=== PATIENT | male | born 1980 | race Two or more races ===

== ENCOUNTER 2017-09-16 10:09 | Inpatient (IN) | payer OTHER ==
[2017-09-16 11:32] VITALS: BMI 38.2
--- NOTE | 2017-09-16 13:50 | HP ---
Admission [facility] Chief Complaint: REHAB TX FOR DRUG ADDICTION Allergies/Adverse Reactions: Allergies Allergy/AdvReac Type Severity Reaction Status Date / Time No Known Allergies Allergy Verified 09/16/17 12:31 History of Present Illness: 37 Y/O AA/MALE WITH A HX OF PCP, ECSTASY AND MARIJUANA DEPENDENCE SEEKING REHAB TX. PT REPORTS HE WAS REFERRED HERE FROM [facility]. PT HAS PRIMARY AT [address] [place] [address] KELLY[address] Exam Limitations: No Limitations - Ebola screening Have you traveled outside of the country in the last 21 days: No (N) Have you had contact with anyone from an Ebola affected area: No Have you been sick,other than usual withdrawal symptoms: No Do you have a fever: No - Review of Systems Constitutional: Changes in sleep EENT: reports: Blurred Vision, Dental Problems (TOOTHACHE HX) Respiratory: reports: Shortness of Breath (HX ASTHMA-MDI), Wheezing Cardiac: reports: Lightheadedness GI: reports: Constipated, Diarrhea, Abdominal cramping, Other (COLONOSCOPY 2 MONTHS AGO--BENIGN POLYPS REMOVED.) : reports: Dysuria Musculoskeletal: reports: Back Pain, Joint Pain, Joint Swelling (S/P LEFT ANKLE FRACTURE 5 YRS AGO.), Muscle Pain, Other (FEET PAIN AND HX NEUROPATHY.) Integumentary: reports: Change in Hair/Nails, Dryness (FEET) Neuro: reports: Headache, Numbness, Tingling, Tremors, Unsteady Gait, Dizziness Endocrine: reports: No Symptoms Reported Hematology: reports: No Symptoms Reported Psychiatric: reports: Orientated x3, Anxious, Depressed Other Systems: Reviewed and Negative Patient History - Patient Medical History Hx Anemia: No Hx Asthma: Yes Hx Chronic Obstructive Pulmonary Disease (COPD): No Hx Cardiac Disorders: No Hx Hypertension: No Hx Hypercholesterolemia: No HX Cerebrovascular Accident: No Hx Seizures: No Hx Diabetes: Yes Hx Gastrointestinal Disorders: Yes (NO MED) Hx Liver Disease: No Hx Genitourinary Disorders: No Hx Sexually Transmitted Disorders: No Hx Renal Disease (ESRD): No Hx Thyroid Disease: No Hx Human Immunodeficiency Virus (HIV): No (NEGATIVE HX) Hx Hepatitis C: No Hx Depression: Yes (NO CURRENT MEDS X 1 WEEK) Hx Suicide Attempt: No (DENIES) Hx Bipolar Disorder: Yes (PTSD) Hx Schizophrenia: Yes - Patient Surgical History Past Surgical History: No Hx Neurologic Surgery: No Hx Cataract Extraction: No Hx Cardiac Surgery: No Hx Lung Surgery: No Hx Breast Surgery: No Hx Breast Biopsy: No Hx Abdominal Surgery: No Hx Appendectomy: No Hx Cholecystectomy: No Hx Genitourinary Surgery: No Hx Orthopedic Surgery: No Anesthesia Reaction: No - PPD History Previous Implant?: Yes Documented Results: Negative w/o proof Implanted On Prior [facility] Admission?: No PPD to be Administered?: Yes - Reproductive History Patient is a Female of Child Bearing Age (11 -55 yrs old): No (MALE) - Smoking Cessation Smoking history: Current every day smoker Aproximately how many cigarettes per day: 6 Hx Chewing Tobacco Use: No Initiated information on smoking cessation: Yes 'Breaking Loose' booklet given: 09/16/17 - Substance & Tx. History Hx Alcohol Use: Yes (BEER/LIQUOR) Hx Substance Use: Yes (ECSTACY/MARIJUANA) Substance Use Type: Marijuana - Substances Abused Ectasy Route: Smoking Frequency: Daily Amount used: $20-40 Age of first use: 11 Date of Last Use: 09/16/17 Marijuana/Hashish Route: Smoking Frequency: Daily Amount used: 5-10 bags Age of first use: 11 Date of Last Use: 09/16/17 Alcohol Route: Oral Frequency: 1-3 times last 30 days Amount used: 2 CANS/ 2 SHOTS Age of first use: 11 Date of Last Use: 09/15/17 Family Disease History - Family Disease History Family Disease History: Diabetes: Grandparent (), Other: Mother (HTN) Admission Physical Exam [facility] - Vital Signs Vital Signs: Vital Signs - 24 hr 09/16/17 11:29 Temperature 97.5 F L Pulse Rate 81 Respiratory 20 Rate Blood Pressure 131/90 - Physical General Appearance: Yes: No Apparent Distress, Obese HEENTM: Yes: EOMI, Normocephalic, [place], Pharynx Normal Respiratory: Yes: Chest Non-Tender, Lungs Clear, Normal Breath Sounds, No Respiratory Distress Neck: Yes: No masses,lesions,Nodules, Supple, Trachea in good position Breast: Yes: Breast Exam Deferred Cardiology: Yes: Regular Rhythm, Regular Rate, S1, S2 Abdominal: Yes: Normal Bowel Sounds, Non Tender, Protuberent Genitourinary: Yes: Other (N/C) Back: Yes: Within Normal Limits Musculoskeletal: Yes: full range of Motion, Gait Steady Extremities: Yes: Normal Range of Motion, Non-Tender Neurological: Yes: supervisor carbon electrodes II-XII NML intact, Fully Oriented, Alert, Motor Strength 5/5 Integumentary: Yes: Dry, Warm Lymphatic: Yes: Within Normal Limits - Diagnostic (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 (2) PCP dependence Current Visit: Yes Status: Chronic (3) Asthma Current Visit: Yes Status: Acute Qualifiers: Asthma severity: mild Asthma persistence: unspecified Asthma complication type: uncomplicated Qualified Code(s): J45.909 - Unspecified asthma, uncomplicated (4) Diabetes mellitus Current Visit: Yes Status: Chronic Comment: ON METFORMIN 1000 PO BID (5) Neuropathy, peripheral Current Visit: Yes Status: Chronic Qualifiers: Peripheral neuropathy type: polyneuropathy, unspecified Qualified Code(s): G62.9 - Polyneuropathy, unspecified Cleared for Admission [facility] - Detox or Rehab Claeared for Rehab Admission: Yes [facility] Breath Alcohol Content Breath Alcohol Content: 0 Urine Drug Screen - Results Drug Screen Negative: No Urine Drug Screen Results: PCP-Phencyclidine Inpatient Rehab Admission - Initial Determination Are CD services needed?: Yes Free of communicable disease: Yes Not in need of hospitalization: Yes - Rehab Admission Criteria Patient is meeting Inpatient Rehab admission criteria:: Yes
[2017-09-16] MEDS ORDERED: NICOTINE POLACRILEX 2 MG GUM BUC PRN (14:10)
[2017-09-16] MEDS ORDERED: MAGNESIUM CITRATE 300 ML BOTTLE PO PRN (14:10)
[2017-09-16] MEDS ORDERED: guaiFENesin/D-METHORPHAN HB 10 ML UNIT-DOSE CUPS PO PRN (14:10)
[2017-09-16] MEDS ORDERED: IBUPROFEN 400 MG TABLET (FP) PO PRN (14:10)
[2017-09-16] MEDS ORDERED: LOPERAMIDE HCL 2 MG CAPSULE PO PRN (14:10)
[2017-09-16] MEDS ORDERED: MENTHOL/PHENOL 1 EACH UD MM PRN (14:10)
[2017-09-16] MEDS ORDERED: MAG HYDROX/AL HYDROX/SIMETH 30 ML UNIT-DOSE CUP PO PRN (14:10)
[2017-09-16] MEDS ORDERED: ACETAMINOPHEN 325 MG TABLET (FP) PO PRN (14:10)
[2017-09-16] MEDS ORDERED: P-EPHED 60MG/TRIPROLIDI 2.5MG TABLET PO PRN (14:10)
[2017-09-16] MEDS ORDERED: MAGNESIUM HYDROX 2400MG/30ML ORAL SUSPENSION 30 ML CUP PO PRN (14:10)
[2017-09-16] MEDS ORDERED: ALBUTEROL SO4 18 GM HFA INHALER IH PRN (14:11)
[2017-09-16] MEDS ORDERED: TUBERCULIN PPD 5 TU/0.1ML VIAL ID ONE (14:27)
[2017-09-16] MEDS: NICOTINE 14 MG/24 HOURS TOPICAL PATCH TD SCH (15:31)
[2017-09-16 16:25] LABS: MCH 29.2 pg (25.7-33.7); MEAN CELL VOLUME 85.9 fl (80-96); MEAN PLT VOLUME 8.4 fl (7.5-11.1); PLATELET COUNT 188 K/MM3 (134-434); RDW 13.4 % (11.9-15.9); WHITE BLOOD COUNT 6.4 K/mm3 (4.0-10.0)
[2017-09-16] MEDS ORDERED: metFORMIN HCL 500 MG TABLET (FP) PO SCH (16:30)
[2017-09-16 16:38] LABS: ALBUMIN 4.1 g/dl (3.4-5.0); ANION GAP 8 (8-16); CALCIUM 9.5 mg/dL (8.5-10.1); CO2 30 mmol/L (21-32); GLUCOSE,RANDOM 385 mg/dL (74-106); SGOT/AST 15 U/L (15-37); SGPT/ALT 31 U/L (12-78)
[2017-09-16 16:41] LABS: ALK PHOS 112 U/L (45-117); BILIRUBIN,TOTAL 0.5 mg/dL (0.2-1.0); CREATININE 0.9 mg/dL (0.7-1.3); TOT PROT 7.5 g/dl (6.4-8.2)
[2017-09-16] MEDS: metFORMIN HCL 500 MG TABLET (FP) PO SCH (18:02)
[2017-09-16 20:14] LABS: SICKLE CELL SCREEN NEGATIVE (NEGATIVE)
[2017-09-16] MEDS: THIAMINE HCL 100 MG TABLET (FP) PO SCH (21:35)
[2017-09-16] MEDS: hydrOXYzine PAMOATE 50 MG CAPSULE (FP) PO PRN (21:35)
[2017-09-16] MEDS: INSULIN SLIDING SCALE (NOVOLOG) 1 VIAL SQ SCH (21:38)
[2017-09-16] MEDS ORDERED: INSULIN (NOVOLOG) ASPART 100 UNITS/ML 10ML VIAL ONE (21:41)
[2017-09-17 03:45] LABS: URINE APPEARANCE CLEAR; URINE BILIRUBIN NEGATIVE (NEGATIVE); URINE BLOOD NEGATIVE (NEGATIVE); URINE COLOR YELLOW; URINE GLUCOSE (UA) 3+ (NEGATIVE); URINE KETONE NEGATIVE (NEGATIVE); URINE NITRITE NEGATIVE (NEGATIVE); URINE PROTEIN NEGATIVE (NEGATIVE); URINE UROBILINOGEN 4.0 E.U/dl mg/dL (0.2-1.0)
[2017-09-17] MEDS: metFORMIN HCL 500 MG TABLET (FP) PO SCH ×2 (07:11→17:03)
[2017-09-17] MEDS: INSULIN SLIDING SCALE (NOVOLOG) 1 VIAL SQ SCH ×4 (07:11→21:58)
[2017-09-17] MEDS ORDERED: INSULIN (NOVOLOG) ASPART 100 UNITS/ML 10ML VIAL ONE ×3 (08:41→22:37)
[2017-09-17] MEDS: PRENATAL VITAMINS W/ FOLIC ACID TABLET (FP) PO SCH (09:50)
[2017-09-17] MEDS: NICOTINE 14 MG/24 HOURS TOPICAL PATCH TD SCH (09:50)
--- NOTE | 2017-09-17 10:02 | HP ---
Psychiatrist Admission - Data Date of interview: 09/17/17 Admission source: [facility] Identifying data: This is the first admission to [address] [place] [address] for this 37 years old AA single father of 3 ,resides with his mother,unemployed. Medical History: Significant for DM,HTN. Psychiatric History: First contact with psychiatrist was in childhood due to behavioral issues.He was dx with ADHD.PATIENT was on Ritalin.Then he was placed on Zoloft and Remeron,Seroquel since his s at [facility].He was addressed depression,anxiety.Patient was dx with PTSD (he was [place]Patient was obtaining psychotropic medications from his PCP.Zoloft 200 mg po daily,Remeron 45 mg po hs and Seroquel 200 mg po hs. Physical/Sexual Abuse/Trauma History: see psychiatric history. Vital Signs: Vital Signs - 24 hr 09/16/17 09/17/17 09/17/17 11:29 03:30 06:52 Temperature 97.5 F L 97.3 F L Pulse Rate 81 73 Respiratory 20 18 18 Rate Blood Pressure 131/90 132/89 Allergies/Adverse Reactions: Allergies Allergy/AdvReac Type Severity Reaction Status Date / Time No Known Allergies Allergy Verified 11/23/12 14:07 Date of last physical exam: 10/16/17 Concur with the findings of this exam: Yes - Substance Abuse/Tx History Hx Alcohol Use: Yes (drinking since 11 yo,2 cans and 2 shots of vodka daily) Hx Substance Use: Yes (marijuana since 11 yo,ecstasysince 11 yo,20-39) Substance Use Type: Alcohol, Marijuana Hx Substance Use Treatment: Yes Mental Status Exam - Mental Status Exam Alert and Oriented to: Time, Place, Person Cognitive Function: Grossly Intact Patient Appearance: Well Groomed Mood: Euthymic Affect: Mood Congruent Patient Behavior: Cooperative Speech Pattern: Clear Voice Loudness: Normal Thought Process: Goal Oriented Thought Disorder: Not Present Hallucinations: Denies Suicidal Ideation: Denies Homicidal Ideation: Denies Insight/Judgement: Fair Sleep: Fair Appetite: Good Muscle strength/Tone: Normal Gait/Station: Normal Psychiatric Findings - Problem List ([place] 1, 2,3) (1) PCP dependence Current Visit: Yes Status: Chronic (2) Asthma Current Visit: Yes Status: Chronic Qualifiers: Asthma severity: mild Asthma persistence: unspecified Asthma complication type: uncomplicated Qualified Code(s): J45.909 - Unspecified asthma, uncomplicated (3) Diabetes mellitus Current Visit: Yes Status: Chronic Comment: ON METFORMIN 1000 PO BID (4) Neuropathy, peripheral Current Visit: Yes Status: Chronic Qualifiers: Peripheral neuropathy type: polyneuropathy, unspecified Qualified Code(s): G62.9 - Polyneuropathy, unspecified (5) PTSD (post-traumatic stress disorder) Current Visit: Yes Status: Chronic (6) Bipolar II disorder Current Visit: Yes Status: Chronic - Initial Treatment Plan Initial Treatment Plan: Continue medications as per plan.Will monitor progress.
--- NOTE | 2017-09-17 10:14 | EKG ---
Test Reason : Blood Pressure : / mmHG Vent. Rate : 082 BPM Atrial Rate : 082 BPM P-R Int : 180 ms QRS Dur : 086 ms QT Int : 372 ms P-R-T Axes : 073 080 030 degrees QTc Int : 434 ms NORMAL SINUS RHYTHM NONSPECIFIC ST AND T WAVE ABNORMALITY ABNORMAL ECG NO PREVIOUS ECGS AVAILABLE Confirmed by ULYSSES LOPEZ MD ([id number]) on 09/17/2017 10:14:52 AM Referred By: JESSIE OSULLIVAN Confirmed By:ULYSESS LOPEZ MD
[2017-09-17 11:23] LABS: URINE LEUK ESTERASE Negative (NEGATIVE)
[2017-09-17] MEDS: SERTRALINE HCL 50 MG TABLET (FP) PO SCH (12:35)
[2017-09-17] MEDS ORDERED: IBUPROFEN 600 MG TABLET (FP) PO PRN (14:52)
[2017-09-17 15:44] LABS: HIV 1 & 2 AB NEGATIVE; HIV 1 AGp24 NEGATIVE
[2017-09-17] MEDS: TOLNAFTATE 1% CREAM 15 GM TUBE TP SCH ×2 (17:10→21:59)
[2017-09-17] MEDS: LISINOPRIL 5 MG TABLET (FP) PO SCH (17:12)
[2017-09-17] MEDS: THIAMINE HCL 100 MG TABLET (FP) PO SCH (21:58)
[2017-09-17] MEDS: hydrOXYzine PAMOATE 50 MG CAPSULE (FP) PO PRN (21:58)
[2017-09-17] MEDS: MIRTAZAPINE 15 MG TABLET (FP) PO SCH (21:58)
[2017-09-17] MEDS: QUEtiapine FUMARATE 200 MG TABLET PO SCH (21:58)
[2017-09-18] MEDS: metFORMIN HCL 500 MG TABLET (FP) PO SCH ×2 (06:39→16:26)
[2017-09-18] MEDS: INSULIN SLIDING SCALE (NOVOLOG) 1 VIAL SQ SCH ×4 (06:41→21:00)
[2017-09-18] MEDS ORDERED: INSULIN (NOVOLOG) ASPART 100 UNITS/ML 10ML VIAL ONE ×4 (06:42→21:02)
[2017-09-18] MEDS: PRENATAL VITAMINS W/ FOLIC ACID TABLET (FP) PO SCH (09:37)
[2017-09-18] MEDS: NICOTINE 14 MG/24 HOURS TOPICAL PATCH TD SCH (09:37)
[2017-09-18] MEDS: LISINOPRIL 5 MG TABLET (FP) PO SCH (09:37)
[2017-09-18] MEDS: SERTRALINE HCL 50 MG TABLET (FP) PO SCH (09:37)
[2017-09-18] MEDS: TOLNAFTATE 1% CREAM 15 GM TUBE TP SCH ×2 (09:37→23:38)
[2017-09-18] MEDS: QUEtiapine FUMARATE 200 MG TABLET PO SCH (21:14)
[2017-09-18] MEDS: THIAMINE HCL 100 MG TABLET (FP) PO SCH (21:14)
[2017-09-18] MEDS: MIRTAZAPINE 15 MG TABLET (FP) PO SCH (21:14)
[2017-09-19] MEDS: metFORMIN HCL 500 MG TABLET (FP) PO SCH ×2 (07:15→16:36)
[2017-09-19] MEDS ORDERED: INSULIN (NOVOLOG) ASPART 100 UNITS/ML 10ML VIAL ONE ×4 (07:17→21:46)
[2017-09-19] MEDS: INSULIN SLIDING SCALE (NOVOLOG) 1 VIAL SQ SCH ×4 (07:19→21:46)
[2017-09-19] MEDS: NICOTINE 14 MG/24 HOURS TOPICAL PATCH TD SCH (09:53)
[2017-09-19] MEDS: SERTRALINE HCL 50 MG TABLET (FP) PO SCH (09:53)
[2017-09-19] MEDS: PRENATAL VITAMINS W/ FOLIC ACID TABLET (FP) PO SCH (09:53)
[2017-09-19] MEDS: TOLNAFTATE 1% CREAM 15 GM TUBE TP SCH ×2 (09:53→21:40)
[2017-09-19] MEDS: LISINOPRIL 5 MG TABLET (FP) PO SCH (09:53)
[2017-09-19] MEDS: THIAMINE HCL 100 MG TABLET (FP) PO SCH (21:40)
[2017-09-19] MEDS: MIRTAZAPINE 15 MG TABLET (FP) PO SCH (21:40)
[2017-09-19] MEDS: QUEtiapine FUMARATE 200 MG TABLET PO SCH (21:40)
[2017-09-20] MEDS: INSULIN SLIDING SCALE (NOVOLOG) 1 VIAL SQ SCH ×4 (07:07→21:39)
[2017-09-20] MEDS: metFORMIN HCL 500 MG TABLET (FP) PO SCH ×2 (07:07→17:14)
[2017-09-20] MEDS ORDERED: INSULIN (NOVOLOG) ASPART 100 UNITS/ML 10ML VIAL ONE ×2 (07:32→12:03)
[2017-09-20] MEDS: NICOTINE 14 MG/24 HOURS TOPICAL PATCH TD SCH (09:50)
[2017-09-20] MEDS: LISINOPRIL 5 MG TABLET (FP) PO SCH (09:50)
[2017-09-20] MEDS: PRENATAL VITAMINS W/ FOLIC ACID TABLET (FP) PO SCH (09:50)
[2017-09-20] MEDS: SERTRALINE HCL 50 MG TABLET (FP) PO SCH (09:51)
[2017-09-20] MEDS: TOLNAFTATE 1% CREAM 15 GM TUBE TP SCH ×2 (09:51→21:41)
[2017-09-20] MEDS: QUEtiapine FUMARATE 200 MG TABLET PO SCH (21:40)
[2017-09-20] MEDS: MIRTAZAPINE 15 MG TABLET (FP) PO SCH (21:40)
[2017-09-20] MEDS: THIAMINE HCL 100 MG TABLET (FP) PO SCH (21:40)
[2017-09-21 06:49] VITALS: TEMP 97.5
[2017-09-21] MEDS ORDERED: INSULIN (NOVOLOG) ASPART 100 UNITS/ML 10ML VIAL ONE ×2 (07:05→22:26)
[2017-09-21] MEDS: INSULIN SLIDING SCALE (NOVOLOG) 1 VIAL SQ SCH ×4 (07:08→21:29)
[2017-09-21] MEDS: metFORMIN HCL 500 MG TABLET (FP) PO SCH ×2 (07:08→16:49)
[2017-09-21] MEDS: SERTRALINE HCL 50 MG TABLET (FP) PO SCH (09:59)
[2017-09-21] MEDS: LISINOPRIL 5 MG TABLET (FP) PO SCH (09:59)
[2017-09-21] MEDS: PRENATAL VITAMINS W/ FOLIC ACID TABLET (FP) PO SCH (09:59)
[2017-09-21] MEDS: TOLNAFTATE 1% CREAM 15 GM TUBE TP SCH ×2 (10:00→21:31)
[2017-09-21] MEDS: NICOTINE 14 MG/24 HOURS TOPICAL PATCH TD SCH (10:00)
[2017-09-21] MEDS: MIRTAZAPINE 15 MG TABLET (FP) PO SCH (21:30)
[2017-09-21] MEDS: QUEtiapine FUMARATE 200 MG TABLET PO SCH (21:30)
[2017-09-21] MEDS: hydrOXYzine PAMOATE 50 MG CAPSULE (FP) PO PRN (21:30)
[2017-09-21] MEDS: THIAMINE HCL 100 MG TABLET (FP) PO SCH (21:30)
[2017-09-22] MEDS: metFORMIN HCL 500 MG TABLET (FP) PO SCH (07:08)
[2017-09-22] MEDS: INSULIN SLIDING SCALE (NOVOLOG) 1 VIAL SQ SCH (07:08)
[2017-09-22] MEDS: LISINOPRIL 5 MG TABLET (FP) PO SCH (09:54)
[2017-09-22] MEDS: TOLNAFTATE 1% CREAM 15 GM TUBE TP SCH (09:54)
[2017-09-22] MEDS: NICOTINE 14 MG/24 HOURS TOPICAL PATCH TD SCH (09:54)
[2017-09-22] MEDS: SERTRALINE HCL 50 MG TABLET (FP) PO SCH (09:54)
[2017-09-22] MEDS: PRENATAL VITAMINS W/ FOLIC ACID TABLET (FP) PO SCH (09:54)
[2017-09-22 10:20] VITALS: BP 128/64; PULSE 86
--- NOTE | 2017-09-22 10:32 | PN ---
Psychiatric Progress Note Vital Signs: Vital Signs Period Temp Pulse Resp BP Sys/Mata Pulse Ox Last 24 Hr 97.5 F 73-86 18-20 113-128/64-74 Date of Session: 09/22/17 Chief Complaint:: AMA Discharge Note HPI: Patient addressing Cannabis and Ectasy type drug Dependence comorbid with Nicotine Dependence, Bipolar II Disorder and Postraumatic Stree Disorder ROS: Asthma, DM, Neuropaty Current Medications: Active Medications Generic Name Dose Route Start Last Admin Trade Name Freq PRN Reason Stop Dose Admin Acetaminophen 650 mg 09/16/17 14:10 Tylenol - PO Q4H PRN PAIN Al Hydroxide/Mg Hydroxide 30 ml 09/16/17 14:10 Mylanta Oral Suspension - PO Q6H PRN DYSPEPSIA Albuterol Sulfate 2 puff 09/16/17 14:11 Ventolin Hfa Inhaler - IH Q4H PRN ASTHMA Eucalyptus/Menthol/Phenol/Sorbitol 1 each 09/16/17 14:10 Cepastat Lozenge - MM Q4H PRN SORE THROAT Guaifenesin 10 ml 09/16/17 14:10 Robitussin Dm - PO Q6H PRN COUGH Hydroxyzine Pamoate 50 mg 09/16/17 14:10 09/21/17 21:30 Vistaril - PO 50 mg Q4H PRN Administration AGITATION Ibuprofen 600 mg 09/17/17 14:52 Motrin - PO Q6H PRN SEVERE PAIN Insulin Aspart 1 vial 09/16/17 22:00 09/22/17 07:08 Novolog Vial Sliding Scale - SQ Not Given ACHS [facility] Protocol Lisinopril 5 mg 09/17/17 16:00 09/22/17 09:54 Prinivil PO 5 mg DAILY VERA Administration Loperamide HCl 4 mg 09/16/17 14:10 Imodium - PO Q6H PRN DIARRHEA Magnesium Citrate 300 ml 09/16/17 14:10 Citroma - PO Q48H PRN CONSTIPATION Magnesium Hydroxide 30 ml 09/16/17 14:10 Milk Of Magnesia - PO DAILY PRN CONSTIPATION Metformin HCl 1,000 mg 09/16/17 18:00 09/22/17 07:08 Glucophage - PO 1,000 mg BID@0700,1630 VERA Administration Mirtazapine 45 mg 09/17/17 22:00 09/21/17 21:30 Remeron - PO 45 mg HS VERA Administration Nicotine 14 mg 09/16/17 14:15 09/22/17 09:54 Nicoderm Patch - TD Not Given DAILY VERA Nicotine Polacrilex 2 mg 09/16/17 14:10 Nicorette Gum - BUC Q2H PRN NICOTINE REPLACEMENT RX Multivit/Folic Acid/Iron 1 tab 09/17/17 10:00 09/22/17 09:54 Vitamins (Sjr) - PO 1 tab DAILY VERA Administration Pseudoephedrine/Triprolidine 1 combo 09/16/17 14:10 Actifed - PO TID PRN NASAL CONGESTION Quetiapine Fumarate 200 mg 09/17/17 22:00 09/21/17 21:30 Seroquel - PO 200 mg HS VERA Administration Sertraline HCl 200 mg 09/17/17 11:30 09/22/17 09:54 Zoloft - PO 200 mg DAILY VERA Administration Thiamine HCl 100 mg 09/16/17 22:00 09/21/17 21:30 Vitamin B1 - PO 100 mg HS VERA Administration Tolnaftate 1 applic 09/17/17 16:00 09/22/17 09:54 Tinactin 1% Cream - TP Not Given BID VERA Current Side Effect: No Lab tests ordered: Yes Lab tests reviewed: Yes Provider note:: Patient has not completed this program. He wants to leave against medical advice citing having a court date tomorrow. He is determined to leave despite encouragement to stay and complete this program. His following psychotropic medications: Zoloft 100 mg po daily, Seroquel 200 mg po HS and Remeron 45 mg po HS cannot be electronically transferred to any pharmacy because he said that his medical insurance coverage is inactive and he cannot fill prescription. He is stable for discharge today Total face to face time:: 25 Mental Status Exam - Mental Status Exam Alert and Oriented to: Time, Place, Person Cognitive Function: Fair Patient Appearance: Well Groomed Mood: Hopeful, Euthymic Affect: Appropriate Patient Behavior: Cooperative Speech Pattern: Clear Voice Loudness: Normal Thought Process: Intact, Goal Oriented Thought Disorder: Not Present Hallucinations: Denies Suicidal Ideation: Denies Homicidal Ideation: Denies Insight/Judgement: Fair Sleep: Well Appetite: Good Muscle strength/Tone: Normal Gait/Station: Normal Psychiatric Treatment Plan - Problem List (1) Alcohol dependence Current Visit: No (2) Ecstasy type drug dependence Current Visit: Yes (3) Nicotine dependence Current Visit: Yes (4) Bipolar II disorder Current Visit: Yes (5) PTSD (post-traumatic stress disorder) Current Visit: Yes (6) Asthma Current Visit: Yes Qualifiers: Asthma severity: mild Asthma persistence: unspecified Asthma complication type: uncomplicated Qualified Code(s): J45.909 - Unspecified asthma, uncomplicated (7) Diabetes mellitus Current Visit: Yes Comment: ON METFORMIN 1000 PO BID (8) Neuropathy, peripheral Current Visit: Yes Qualifiers: Peripheral neuropathy type: polyneuropathy, unspecified Qualified Code(s): G62.9 - Polyneuropathy, unspecified Initial treatment plan: Patient is leaving [place]
== END 2017-09-22 10:40 | disposition left against medical advice (07) | DRG 770 ==
LOC: YASAS 10:09 → MERGE 13:37 → Y3W 13:37
PROVIDERS: ADMIT Psychiatry & Neurology Psychiatry; ATTEND Psychiatry & Neurology Psychiatry
PROC: HZ42ZZZ Group Counseling for Substance Abuse Treatment, Cognitive-Behavioral (ICD-10-PCS; principal; 2017-09-16)
DX: F10.20 Alcohol dependence, uncomplicated (principal); F15.20 Other stimulant dependence, uncomplicated; F17.210 Nicotine dependence, cigarettes, uncomplicated; F31.81 Bipolar II disorder; F43.10 Post-traumatic stress disorder, unspecified; E11.9 Type 2 diabetes mellitus without complications; Z79.84 Long term (current) use of oral hypoglycemic drugs; J45.909 Unspecified asthma, uncomplicated; G62.9 Polyneuropathy, unspecified
CPT/HCPCS: 36415; 80053; 81003; 85027; 85660; 86593; 87389; 93005; 93010

== ENCOUNTER 2019-02-25 09:44 | Emergency (ER) | payer OTHER ==
[2019-02-25 09:49] VITALS: BMI 35.6
--- NOTE | 2019-02-25 10:22 | PDOC ---
History of Present Illness - General Chief Complaint: Chest Pain Stated Complaint: CHEST PAIN Time Seen by Provider: 02/25/19 10:01 History Source: Patient Exam Limitations: No Limitations - History of Present Illness Initial Comments: 02/25/19 10:17 38M with PMH of bipolar disorder and DM who presents to the ER with complaints of CP and abdominal pain. The patient describes 40 minutes of chest pain which occurred yesterday afternoon. The pain was retrosternal, nonradiating, atraumatic, without exacerbating or alleviating factors, described as a "pain" and not associated with diaphoresis, nausea, vomiting, palpitations, lightheadedness, or changes in vision. He admits to having seconds of this chest pain this morningHe also complains of abdominal pain which is suprapubic, nonradiating, and that started this morning. He denies dysuria, testicular pain , and penile discharge, melena, hematochezia, nausea, vomiting, diarrhea. Past History - Past Medical History Allergies/Adverse Reactions: Allergies Allergy/AdvReac Type Severity Reaction Status Date / Time No Known Allergies Allergy Verified 02/25/19 09:45 Home Medications: Ambulatory Orders metFORMIN HCL [Glucophage -] 500 mg PO BID 09/16/17 Anemia: No Asthma: Yes Cardiac Disorders: No CVA: No COPD: No DVT: No Diabetes: Yes GI Disorders: Yes (NO MED) Disorders: No HTN: No Hypercholesterolemia: No Kidney Stones: No Liver Disease: No Seizures: No Thyroid Disease: No - Surgical History Abdominal Surgery: No Appendectomy: No Cardiac Surgery: No Cholecystectomy: No Lung Surgery: No Neurologic Surgery: No Orthopedic Surgery: No - Reproductive History Testicular Surgery: No - Suicide/Smoking/Psychosocial Hx Smoking Status: No Smoking History: Never smoked Years of Tobacco Use: 5 Have you smoked in the past 12 months: No Number of Cigarettes Smoked Daily: 5 'Breaking Loose' booklet given: 09/16/17 Hx Alcohol Use: No Drug/Substance Use Hx: No Substance Use Type: Marijuana Hx Substance Use Treatment: Yes Review of Systems - Review of Systems Able to Perform ROS?: Yes Comments:: 02/25/19 10:21 GENERAL/CONSTITUTIONAL: No fever or chills. No weakness. HEAD, EYES, EARS, NOSE AND THROAT: No change in vision. No ear pain or discharge. No sore throat. CARDIOVASCULAR: + for resolved CP. No palpitations or lightheadedness. RESPIRATORY: No cough, wheezing, shortness of breath, or hemoptysis. GASTROINTESTINAL: + for abdominal pain. No nausea, vomiting, diarrhea, or constipation. GENITOURINARY: No dysuria, frequency, hematuria, or change in urination. MUSCULOSKELETAL: No joint or muscle swelling or pain. No neck or back pain. SKIN: No rash or lesions. NEUROLOGIC: No headache, numbness, tingling, focal weakness, loss of consciousness, or change in strength/sensation. Is the patient limited [place] proficient: No *Physical Exam - Vital Signs Last Vital Signs Temp Pulse Resp BP Pulse Ox 98.4 F 82 18 127/88 99 02/25/19 09:46 02/25/19 09:46 02/25/19 09:46 02/25/19 09:46 02/25/19 09:46 - Physical Exam Comments: 02/25/19 10:22 GENERAL: Well developed, well nourished. Awake and alert. No acute distress. HEENT: Normocephalic, atraumatic. Hearing grossly normal. Moist mucous membranes. PERRLA, EOMI. No conjunctival pallor. Sclera are non-icteric. NECK: Supple. Full ROM. No JVD. CARDIOVASCULAR: Regular rate and rhythm. No murmurs, rubs, or gallops. PULMONARY: No evidence of respiratory distress. Lungs clear to auscultation bilaterally. No wheezing, rales or rhonchi. ABDOMINAL: Soft. Tenderness to deep palpation in suprapubic abdomen. Non- distended. No rebound or guarding. GENITOURINARY: No CVA tenderness bilaterally. MUSCULOSKELETAL: Normal range of motion at all joints. No bony deformities or tenderness. EXTREMITIES: No cyanosis. No clubbing. No edema. No calf tenderness or swelling. SKIN: Warm and dry. Normal capillary refill. No rashes. No jaundice. NEUROLOGICAL: Alert, awake, appropriate. Cranial nerves 2-12 intact. Normal speech. Gait is normal without ataxia. PSYCHIATRIC: Cooperative but distractable. Poor eye contact. Appropriate mood and affect. Heart Score/ECG Review #1 ECG reviewed & interpreted by me at: 10:23 General ECG Interpretation: Sinus Rhythm, Normal Rate, Normal Intervals, No acute ischemic changes Compared to previous ECG there are: No significant change 02/25/19 10:23 NSR vent rate 70-75 NV 156 QRS 84 QTc 408 No STD or LAURA No signs of acute ischemia Rhythm strip showing sinus rhythm w/ rate 70-75 ED Treatment Course - LABORATORY CBC & Chemistry Diagram: 02/25/19 10:30 02/25/19 10:30 - RADIOLOGY Radiology Studies Ordered: Category Date Time Status CHEST PA & LAT [RAD] Stat Radiology 02/25/19 10:16 Ordered Medical Decision Making - Medical Decision Making 02/25/19 10:24 38M with PMH of DM and bipolar disorder, noncompliant with meds, who presents with CP and abdominal pain but both are resolved and he cannot describe the pain further. Pt is poor historian and changed his story during the history. Will draw labs and monitor. 02/25/19 11:40 Labs show PCP+ in urine. CBC WNL. Pending CMP and troponin. CXR negative. 02/25/19 13:43 All imaging negative. Pt given 2L fluids. Pt informed to quit using PCP which he admits to using 5x/day. Will d/c with PCP f/u. *DC/Admit/Observation/Transfer Diagnosis at time of Disposition: Atypical chest pain Phencyclidine (PCP) intoxication Qualifiers: Complication of substance-induced condition: uncomplicated Qualified Code(s): F16.920 - Hallucinogen use, unspecified with intoxication, uncomplicated - Discharge Dispostion Disposition: HOME Condition at time of disposition: Stable Decision to Admit order: No - Referrals Referrals: Chace Epps MD [Primary Care Provider] - - Patient Instructions Printed Discharge Instructions: DI for Drug Overdose in Adults Additional Instructions: Your ER visit is not complete until your follow up with your primary care physician. Please follow up with your primary care physician in 1-2 days. Please return to the ER if you have any signs or symptoms of chest pain, shortness of breath, uncontrollable fever, chills, nausea, vomiting, numbness, tingling, or weakness in any part of your body, changes in vision, or slurred speech. Please return to the ER if symptoms persist, worsen, or new symptoms arise. - Post Discharge Activity
[2019-02-25] MEDS ORDERED: SODIUM CHLORIDE 0.9% 1000 ML INFUS.BAG IV ONE ×2 (10:30→12:30)
[2019-02-25 10:56] LABS: BASO % 1.1 % (0-2.0); EOS % 1.3 % (0-4.5); HEMATOCRIT 42.5 % (35.4-49); LYMPH % 39.7 % (8-40); MCH 29.3 pg (25.7-33.7); MEAN CELL VOLUME 88.9 fl (80-96); MEAN PLT VOLUME 7.2 fl (7.5-11.1); MONO % 6.5 % (3.8-10.2); NEUT % 51.4 % (42.8-82.8); PLATELET COUNT 183 K/MM3 (134-434); RBC 4.79 M/mm3 (4.00-5.60); WHITE BLOOD COUNT 6.1 K/mm3 (4.0-10.0)
[2019-02-25 11:07] LABS: PH,URINE 5.5 (5.0-8.0); URINE APPEARANCE CLEAR; URINE BILIRUBIN NEGATIVE (NEGATIVE); URINE CASTS 4 /lpf (0-8); URINE COLOR YELLOW; URINE GLUCOSE (UA) NEGATIVE (NEGATIVE); URINE KETONE NEGATIVE (NEGATIVE); URINE LEUK ESTERASE TRACE (NEGATIVE); URINE NITRITE NEGATIVE (NEGATIVE); URINE PROTEIN TRACE (NEGATIVE); URINE RBC 1 /hpf (0-4); URINE WBC 7 /hpf (0-5)
[2019-02-25 11:08] LABS: INR 0.97 (0.83-1.09); PROTHROMBIN TIME (PATIENT) 11.4 SEC (9.7-13.0)
--- NOTE | 2019-02-25 11:10 | PDOC ---
Documentation entered by Agus Ramirez SCRIBE, acting as scribe for Sarah Barajas MD. Sarah Barajas MD: This documentation has been prepared by the Ashley han Nirvannie, SCRIBE, under my direction and personally reviewed by me in its entirety. I confirm that the documentation accurately reflects all work, treatment, procedures, and medical decision making performed by me. Attending Attestation - Resident Resident Name: Josue Norris - ED Attending Attestation I have performed the following: I have examined & evaluated the patient, The case was reviewed & discussed with the resident, I agree w/resident's findings & plan - HPI HPI: 02/25/19 10:59 [id number], with a significant past medical history of NIDDM, bipolar disorder, and schizophrenia:, who presents to the emergency department with, intermittent chest and abdominal pain. Patient describes his chest pain as nonradiating, retrosternal lasting 40 minutes yesterday and a few seconds today. He describes his abdominal pain as periumbilical/epigastric, nonradiating. no associated vomiting. +diarrhea and loose brown BM, nonbloody x 2-4 weeks, more solidified stools now. Denies any diaphoresis or testicular pain/swelling. Denies fever, chills, SOB, palpitation, dizziness, weakness, N, V, leg swelling, No sick contacts or travel. No new changes in medications. No suspicious food intake Allergies: None Past Medical History: NIDDM, Bipolar d/o, Schizophrenia Social history: Lives with family. Former PCP, Ecstasy, and marijuana dependence. Surgical history: None reported. Meds: as documented in EMR PMD: Dr. Epps 02/25/19 11:35 - Physicial Exam PE: 02/25/19 11:08 Agree with the resident's HPI and PE as documented in the electronic medical record. NAD, well appearing, PERRL, EOMI, MMM, nl conjunctiva, anicteric; neck supple. lungs clear, RRR, no murmurs. abdomen soft nontender. VYAS x4, no focal neuro deficits. No peripheral edema. normal color for ethnicity, WWP. - Medical Decision Making 02/25/19 11:08 Sarah Grijalva MD, attest that this document has been prepared under my direction and personally reviewed by me in its entirety. I further attest, that it accurately reflects all work, treatment, procedures and medical decision -making performed by me. See HPI for details Vital signs reviewed, wnl. DDx chest pain: ACS, coronary vasospasm, NSTEMI, arrhythmia, unstable angina, PE , dissection, PUD, esophageal spasm, GERD, gastritis, costochondritis, pneumonia , pleurisy, pericarditis/myocarditis. dehydration, electrolyte/metabolic derangements. Prior notes reviewed, including admissions, discharges and consultations. laboratory results and imaging reviewed, basic labs and lytes wnl; LFTs and lipase normal UA_tox screen +PCP. otherwise no blood or s/s infection. CXR_no acute chest pathology Cardiac panel_neg; ck level mildly elevated, no e/o rhabdo, also nonsensitive and nonspecific, will give fluids EKG normal sinus rhythm at 71 bpm, no interval abnormalities, narrow QRS, ST and T wave segments and morphology normal. Nonspecific T wave abnormalities ED course - no acute events, 5/10 chest sx Utox positive for PCP, could be cause of chest pain discomfort. trop neg, doubt cardiac or vasospasms. does not appear intoxicated or in w/d. GI cocktail for epigastric discomfort. no bloody BM or testicular/rectal sx or swellling. on reeval, admits to PCP use 5X per day, likely etiology of sx - initially not endorsed. Pt to be discharged in stable condition. Patient and family made aware of impression and plan, return precautions discussed (including but not limited to worsening pain or symptoms), fevers, or signs of infection, chest pain, respiratory distress, inability to tolerate oral intake, dehydration, syncope, or neurologic changes). Follow up with PMD and/or specialist as recommended, follow up information provided, take medications as instructed for duration of time. continue with supportive care, avoid triggers and precipitants. All questions answered to patient's satisfaction and expressed understanding and comfort with this. Patient does not suffer from an acute life-threatening medical condition at this time and is safe for outpatient follow-up. 02/25/19 13:42 Heart Score/ECG Review #1 ECG reviewed & interpreted by me at: 09:55 General ECG Interpretation: Sinus Rhythm, Normal Rate, Normal Intervals, No acute ischemic changes 02/25/19 11:10 EKG normal sinus rhythm at 71 bpm, no interval abnormalities, narrow QRS, ST and T wave segments and morphology normal. Nonspecific T wave abnormalities
[2019-02-25 11:22] LABS: COCAINE, UR NEGATIVE ng/ml (CUTOFF=300); METHADONE, UR NEGATIVE ng/ml (CUTOFF=300); OPIATES, URI NEGATIVE ng/ml (CUTOFF=300); URINE AMPHETAMINES NEGATIVE ng/ml (CUTOFF=500); URINE BARBITURATES NEGATIVE ng/ml (CUTOFF=200); URINE BENZODIAZEPINES NEGATIVE ng/ml (CUTOFF=200)
[2019-02-25 11:27] LABS: PHENCYCLIDINE,URINE POSITIVE ng/ml (CUTOFF=25)
[2019-02-25] MEDS ORDERED: FAMOTIDINE 20 MG/50 ML IVPB 20 MG/50 ML MG IVPB ONE ×2 (11:39→11:55)
[2019-02-25] MEDS ORDERED: MAG HYDROX/AL HYDROX/SIMETH -MYLANTA- ORAL SUSPENSION PO ONE (11:39)
[2019-02-25 11:42] LABS: ALBUMIN 3.6 g/dl (3.4-5.0); ALK PHOS 75 U/L (45-117); ANION GAP 6 MMOL/L (8-16); BILIRUBIN,TOTAL 0.5 mg/dL (0.2-1); BLOOD UREA NITROGEN 26 mg/dL (7-18); CALCIUM 8.9 mg/dL (8.5-10.1); CHLORIDE 108 mmol/L (98-107); CO2 28 mmol/L (21-32); GLUCOSE,RANDOM 151 mg/dL (74-106); LIPASE 140 U/L (73-393); SGOT/AST 54 U/L (15-37); SGPT/ALT 75 U/L (13-61); SODIUM 142 mmol/L (136-145); TOT PROT 6.3 g/dl (6.4-8.2)
[2019-02-25] MEDS ORDERED: MAG HYDROX/AL HYDROX/SIMETH 30 ML UNIT-DOSE CUP ONE (11:55)
[2019-02-25 12:05] LABS: ACETONE SERUM NEGATIVE (NEGATIVE)
[2019-02-25 14:07] VITALS: BP 120/84; PULSE 79; TEMP 98.1
--- NOTE | 2019-02-26 12:25 | EKG ---
Test Reason : Blood Pressure : / mmHG Vent. Rate : 071 BPM Atrial Rate : 071 BPM P-R Int : 154 ms QRS Dur : 088 ms QT Int : 358 ms P-R-T Axes : 046 077 010 degrees QTc Int : 389 ms NORMAL SINUS RHYTHM NORMAL ECG WHEN COMPARED WITH ECG OF 08-JUN-2011 09:37, NO SIGNIFICANT CHANGE WAS FOUND Confirmed by SUKH ZEE MD ([id number]) on 02/26/2019 12:25:04 PM Referred By: Confirmed By:SUKH ZEE MD
== END 2019-02-25 14:00 | disposition home or self-care (01) ==
LOC: JER 09:44
PROC: 3E033GC Introduction of Other Therapeutic Substance into Peripheral Vein, Percutaneous Approach (ICD-10-PCS; principal; 2019-02-25)
PROC: 3E0337Z Introduction of Electrolytic and Water Balance Substance into Peripheral Vein, Percutaneous Approach (ICD-10-PCS; 2019-02-25)
DX: F16.920 Hallucinogen use, unspecified with intoxication, uncomplicated (principal); R07.89 Other chest pain; F31.9 Bipolar disorder, unspecified; E11.9 Type 2 diabetes mellitus without complications; Z91.14 Patient's other noncompliance with medication regimen
CPT/HCPCS: 36415; 71046-TC-FY; 80053; 80307; 81003; 82009; 82550; 82553; 83690; 84484; 85025; 85610; 93005; 93010; 96365; 99285-25; J7030

== ENCOUNTER 2020-05-24 05:44 | Emergency (ER) | payer OTHER ==
[2020-05-24 05:58] VITALS: BP 134/82; PULSE 76; TEMP 98.4; BMI 35.4
--- NOTE | 2020-05-24 06:16 | PDOC ---
Attending Attestation - Resident Resident Name: Lianna Mehta - ED Attending Attestation I have performed the following: I have examined & evaluated the patient, The case was reviewed & discussed with the resident, I agree w/resident's findings & plan, Exceptions are as noted - HPI HPI: 05/30/20 21:59 See resident HPI - Physicial Exam PE: 05/30/20 21:59 Agree with documented exam - Medical Decision Making 05/30/20 21:59 Px 2/2 R sided lower molar dental caries. No signs of abscess, visible pulp, no neck mass, no bogginess/fullness below tongue, normal voice, tolerating secretions w/o issue analgesia dc for outpatient dental f/u Discharge - Discharge Information Problems reviewed: Yes Clinical Impression/Diagnosis: Toothache Condition: Stable Disposition: HOME - Follow up/Referral Referrals: Chace Epps MD [Primary Care Provider] - - Patient Discharge Instructions Additional Instructions: You were evaluated for a toothache. Follow up with your dentist and oral maxillofacial doctor for further dental workup. Take Ibuprofen at home for the pain. Return to the ED if your condition worsens and/or you experience worsening pain, tongue/gum/cheek/throat swelling, difficulty breathing, difficulty swallowing, fevers, chills, nausea, vomiting. - Post Discharge Activity
--- NOTE | 2020-05-24 06:24 | PDOC ---
History of Present Illness - General Chief Complaint: Toothache Stated Complaint: TOOTHACHE - History of Present Illness Initial Comments: 39 yo male with no significant PMH presents with oral pain. Pt says the pain is in his right lower mouth and radiates to the right side of the tongue and right inner cheek. He had a recent dental evaluation which informed him that he needs work for a dental cavity and to have his wisdom teeth removed. Pt is not curr ently following up with dental care. He has not taken anything for the pain. He denies fevers, chills, difficulty breathing/swallowing. He denies any discharge or local inflammation. Past History - Medical History Allergies/Adverse Reactions: Allergies Allergy/AdvReac Type Severity Reaction Status Date / Time No Known Allergies Allergy Verified 05/24/20 20:04 Home Medications: Ambulatory Orders Sertraline HCl [Zoloft] 100 mg PO DAILY 11/15/19 Sitagliptin Phosphate [Januvia -] 100 mg PO BID #14 each 01/17/20 Anemia: No Asthma: Yes Cancer: No Cardiac Disorders: No CVA: No COPD: No DVT: No Dementia: No Diabetes: Yes GI Disorders: Yes (bleeding from polyps) Disorders: Yes (sometimes incontinent) HTN: No Hypercholesterolemia: Yes Kidney Stones: No Liver Disease: Yes (elevated LFTs) Seizures: Yes (last one a year ago - no treatment) Thyroid Disease: No - Surgical History Abdominal Surgery: Yes (colonoscopy - polyps removed) Appendectomy: No Cardiac Surgery: No Cholecystectomy: No Lung Surgery: No Neurologic Surgery: No Orthopedic Surgery: No - Reproductive History Testicular Surgery: No - Immunization History Immunization Up to Date: Yes - Psycho-Social/Smoking History Smoking Status: No Smoking History: Never smoked Years of Tobacco Use: 5 Have you smoked in the past 12 months: No Number of Cigarettes Smoked Daily: 10 Information on smoking cessation initiated: No 'Breaking Loose' booklet given: 01/04/20 - Substance Abuse Hx (Audit-C & DAST Scrn) How often the patient has a drink containing alcohol: Never Score: In Men: 4 or > Positive; In Women: 3 or > Positive: 0 Screen Result (Pos requires Nsg. Audit-10AR): Negative In the last yr the pt used illegal drug/Rx for NonMed reason: No Score: Yes response is considered Positive: 0 Screen Result (Positive result requires Nsg. DAST-10): Negative Review of Systems - Review of Systems Constitutional: No: Chills, Fever HEENTM: Yes: Mouth Pain, Dental Problems. No: Recent change in vision, Double Vision, Throat Pain, Throat Swelling, Difficulty Swallowing, Mouth Swelling Respiratory: No: Cough, Shortness of Breath Cardiac (ROS): No: Chest Pain, Lightheadedness, Palpitations ABD/GI: No: Diarrhea, Nausea, Vomiting : No: Burning, Dysuria Musculoskeletal: No: Joint Pain, Joint Swelling Integumentary: No: Erythema, Flushing, Lesions Neurological: No: Headache, Dizziness Psychiatric: No: Anxiety, Depression, Mood Swings Endocrine: No: Intolerance to Cold, Intolerance to Heat *Physical Exam - Vital Signs Last Vital Signs Temp Pulse Resp BP Pulse Ox 98.4 F 76 20 134/82 99 05/24/20 05:57 05/24/20 05:57 05/24/20 05:57 05/24/20 05:57 05/24/20 05:57 - Physical Exam General Appearance: Yes: Appropriately Dressed. No: Apparent Distress HEENT: positive: Other (cavity in right bottom molar with tooth decay. no other pathology with the inner mucosa, tongue, oral floor. ). negative: EOMI, Normal Voice Neck: negative: Tender, Rigid Respiratory/Chest: positive: Lungs Clear, Normal Breath Sounds. negative: Respiratory Distress Cardiovascular: positive: Regular Rhythm, Regular Rate, S1, S2 Gastrointestinal/Abdominal: positive: Flat, Soft. negative: Tender Musculoskeletal: positive: Normal Inspection. negative: CVA Tenderness Extremity: positive: Normal Capillary Refill, Normal Inspection, Normal Range of Motion Integumentary: positive: Normal Color, Dry, Warm Neurologic: positive: Fully Oriented, Alert, Normal Mood/Affect Medical Decision Making - Medical Decision Making 39 yo male with PMH of dental cavities and wisdom teeth pain presented with right sided oral pain. Physical exam identified a decayed tooth with a cavity (right lower molar). No tongue boggyness, difficulty breathing, difficulty swallowing. Pt is given ibuprofen and told to follow up with dental. Discharged in stable condition. Discharge - Discharge Information Problems reviewed: Yes Clinical Impression/Diagnosis: Toothache Condition: Stable Disposition: HOME - Admission No - Follow up/Referral Referrals: Chace Epps MD [Primary Care Provider] - - Patient Discharge Instructions Additional Instructions: You were evaluated for a toothache. Follow up with your dentist and oral maxillofacial doctor for further dental workup. Take Ibuprofen at home for the pain. Return to the ED if your condition worsens and/or you experience worsening pain, tongue/gum/cheek/throat swelling, difficulty breathing, difficulty swallowing, fevers, chills, nausea, vomiting. - Post Discharge Activity
[2020-05-24] MEDS ORDERED: IBUPROFEN 400 MG TABLET (FP) PO ONE (06:40)
== END 2020-05-24 07:40 | disposition home or self-care (01) ==
LOC: JER 05:44
DX: K08.89 Other specified disorders of teeth and supporting structures (principal)
CPT/HCPCS: 99282-25

== ENCOUNTER 2020-05-24 19:59 | Observation (INO) | payer OTHER ==
[2020-05-24 20:05] VITALS: BMI 35.4
[2020-05-24] MEDS ORDERED: SODIUM CHLORIDE 1,000 ML IV STA (20:09)
--- NOTE | 2020-05-24 20:31 | PDOC ---
History of Present Illness - General Chief Complaint: Shortness of Breath Stated Complaint: SOB Time Seen by Provider: 05/24/20 20:31 - History of Present Illness Initial Comments: HPI Pt is a 39yo M with PMH of Type 2 DM and depression who presents with shortness of breath. States that episode began 1 hour ago and has since resolved. States that he was at rest, smoking 4 bags of PCP and 10 bags of crack when symptoms began. Described as a feeling of unable to breathe to mouth and nose. Reports remote history of being told he needs to be on a "water pill" for his "water weight." Denies f/c, chest pain, palpitations, abdominal pain, n/v. Has variety of chronic complaints, such as b/l hand paresthesias, tooth pain (seen here earlier today for this, left AMA), and b/l toe pain. PCP: [place] PMH: see above PSH: denies Meds: januvia, zoloft Allergies: denies Social: reports 1PPD tobacco use, reports occasional etoh use, reports PCP and crack use Review of Systems CONSTITUTIONAL:denies fever, chills, diaphoresis, generalized weakness, malaise, loss of appetite HEENT:denies rhinorrhea, nasal congestion, sore throat, throat swelling, difficulty swallowing, mouth swelling, ear pain, eye pain, visual Changes CARDIOVASCULAR:denies chest pain, syncope, palpitations, irregular heart rate, lightheadedness, peripheral edema RESPIRATORY:reports SOB, cough, dyspnea with exertion, orthopnea, wheezing, hemoptysis GASTROINTESTINAL: denies abdominal pain, nausea, vomiting, diarrhea, constipation, melena, hematochezia GENITOURINARY:reports increased frequency, denies dysuria, urgency, hematuria, flank pain MUSCULOSKELETAL:denies myalgia, arthralgia NEUROLOGIC:denies headache, loss of consciousness, focal weakness or paresthesias, dizziness, unsteady gait, seizure, mental status changes, bladder or bowel incontinence Physical Exam General: awake, AOX4, in no acute distress, well developed, well nourished; appears to be confused at times; tangential speech, but redirectable Head: normocephalic, atraumatic Eyes: PERRL, EOMI, anicteric sclera, conjunctiva clear ENT: Auricles normal inspection, hearing grossly normal, nares patent, orop harynx clear without exudates. No nasal congestion Moist mucous membranes Neck: supple, normal ROM, no LAD, JVD or masses Lung: equal breath sounds b/l, CTA b/l, no crackles, wheezes; no distress, spe aks full sentences Heart: RRR, normal S1, S2, no murmurs, rubs, gallops Abdomen: soft, non tender, normoactive bowel sounds, no guarding, rebound, masses Extremities: normal ROM, no edema, no erythema or tenderness, DP/PT pulses 2+ and symmetric, no clubbing, cyanosis Neuro: CN2-12 grossly intact, moves all extremities, normal speech, normal gait, sensation intact Skin: warm, dry, no rashes or lesions noted Past History - Medical History Allergies/Adverse Reactions: Allergies Allergy/AdvReac Type Severity Reaction Status Date / Time No Known Allergies Allergy Verified 05/24/20 20:04 Home Medications: Ambulatory Orders Sertraline HCl [Zoloft] 100 mg PO DAILY 11/15/19 Sitagliptin Phosphate [Januvia -] 100 mg PO BID #14 each 01/17/20 Anemia: No Asthma: Yes Cancer: No Cardiac Disorders: No CVA: No COPD: No DVT: No Dementia: No Diabetes: Yes GI Disorders: Yes (bleeding from polyps) Disorders: Yes (sometimes incontinent) HTN: No Hypercholesterolemia: Yes Kidney Stones: No Liver Disease: Yes (elevated LFTs) Seizures: Yes (last one a year ago - no treatment) Thyroid Disease: No - Surgical History Abdominal Surgery: Yes (colonoscopy - polyps removed) Appendectomy: No Cardiac Surgery: No Cholecystectomy: No Lung Surgery: No Neurologic Surgery: No Orthopedic Surgery: No - Reproductive History Testicular Surgery: No - Immunization History Immunization Up to Date: Yes - Psycho-Social/Smoking History Smoking Status: No Smoking History: Current every day smoker Years of Tobacco Use: 5 Have you smoked in the past 12 months: No Number of Cigarettes Smoked Daily: 10 Information on smoking cessation initiated: No 'Breaking Loose' booklet given: 01/04/20 - Substance Abuse Hx (Audit-C & DAST Scrn) How often the patient has a drink containing alcohol: 2-3 times / week Score: In Men: 4 or > Positive; In Women: 3 or > Positive: 3 Screen Result (Pos requires Nsg. Audit-10AR): Negative In the last yr the pt used illegal drug/Rx for NonMed reason: Yes Score: Yes response is considered Positive: 1 Screen Result (Positive result requires Nsg. DAST-10): Positive *Physical Exam - Vital Signs Last Vital Signs Temp Pulse Resp BP Pulse Ox 98 F 100 H 18 147/85 97 05/24/20 20:02 05/24/20 20:02 05/24/20 20:02 05/24/20 20:02 05/24/20 20:02 Heart Score/ECG Review - History History: Slightly suspicious - Electrocardiogram EKG: Non specific repolarization disturbance - Age Age: </= 45 - Risk Factors Risk Factors Heart Score: Yes Hx Diabetes, Yes Smoking History, Yes Hx Obesity Based on the list above the patient has:: >/=3 risk factors or Hx atherosclerotic disease - Troponin Troponin: </= normal limit - Score Heart Score - Total: 3 ED Treatment Course - LABORATORY CBC & Chemistry Diagram: 05/25/20 05:29 05/25/20 05:29 Medical Decision Making - Medical Decision Making Pt is a 39yo M with PMH T2DM, HTN, obesity, nicotine abuse, depression, PCP/Cocaine substance use who presents with SOB. Vital Signs Period Temp Pulse Resp BP Sys/Mata Pulse Ox Last 24 Hr 98 F 100 18 147/85 97 DDx: substance related, ACS, PE, CHF Plan: labs, EKG, CXR EKG: HR 97bpm, normal sinus rhythm, [place] 174ms, QRS 88ms, QTc 429ms, nonspecific ST and T wave abnormality CXR: midline airway, appropriate vascular markings, no blunting of costophrenic angle, no cardiomegaly, no consolidations or effusions, as read by ED staff Labs: no leukocytosis, no anemia, electrolytes WNL, no ARACELY, normal LFTs Laboratory Tests 05/24/20 05/24/20 05/24/20 19:50 19:50 19:50 WBC 6.7 RBC 4.60 Hgb 13.7 Hct 40.5 MCV 88.0 MCH 29.8 MCHC 33.8 RDW 13.1 Plt Count 181 MPV 7.7 Absolute Neuts (auto) 3.7 Neutrophils % 55.6 Lymphocytes % 35.7 Monocytes % 6.6 Eosinophils % 1.5 Basophils % 0.6 Nucleated RBC % 0 Sodium 140 Potassium 4.2 Chloride 106 Carbon Dioxide 25 Anion Gap 8 BUN 14.4 Creatinine 1.1 Est GFR (CKD-EPI)AfAm 96.81 Est GFR (CKD-EPI)NonAf 83.53 Random Glucose 362 H Calcium 9.0 Total Bilirubin 0.3 AST 17 ALT 29 Alkaline Phosphatase 80 Creatine Kinase 519 H Creatine Kinase Index 0.8 CK-MB (CK-2) 4.4 H Troponin I < 0.02 Total Protein 6.4 Albumin 3.5 Salicylates 4.0 Acetaminophen < 2.0 Alcohol, Quantitative < 3 HEART Score 3 Given recent history of cocaine use and ACS risk factors, d/w patient admission to tele obs. Patient signed out to inpatient team who accepted care for patient. Disposition Admit Discharge - Discharge Information Problems reviewed: Yes Clinical Impression/Diagnosis: Shortness of breath, Cocaine abuse Phencyclidine (PCP) intoxication Qualifiers: Complication of substance-induced condition: uncomplicated Qualified Code(s): F16.920 - Hallucinogen use, unspecified with intoxication, uncomplicated Condition: Stable Disposition: AGAINST MEDICAL ADVICE - Admission Yes - Follow up/Referral - Patient Discharge Instructions - Post Discharge Activity
--- NOTE | 2020-05-24 20:38 | PDOC ---
Attending Attestation - Resident Resident Name: Cristina Yanes - ED Attending Attestation I have performed the following: I have examined & evaluated the patient, The case was reviewed & discussed with the resident, I agree w/resident's findings & plan - HPI HPI: 05/24/20 21:14 Pt is a 39yo M with PMH of Type 2 DM, HTN, and depression who presents with shortness of breath. States that episode began 1 hour ago and has since resolved. States that he was at rest, smoking 4 bags of PCP and 10 bags of crack when symptoms began. Described as a feeling of unable to breathe to mouth and nose. 05/24/20 22:56 Pt is obese. - Physicial Exam PE: 05/24/20 21:14 Agree with resident exam 05/24/20 22:55 Pt is obese and diaphoretic and wheezing patchy in his lung [place]. Heart RRR Abd soft NT ND Patchy wheeze bilaterally - Medical Decision Making 05/24/20 21:13 CXR normal vitals WNL; HR borderline at 100bpm CBC normal 05/25/20 01:56 UTOX positive for all the drugs pt told us he took Heart Score/ECG Review - ECG Intrepretation Rhythm: Regular Rhythm - [place]: Normal - P and CT Prominent R with upright T in V1 (true posterior [place]): No - QRS Poor R Wave Progression: No Q Wave Present: No - ST and T Early Repolarization: No Non Specific ST-T Wave changes: No Flattened T Waves: No - ECG Impressions Normal ECG: Yes Non-specific ST Elevation: No Ischemic Changes: No Bradycardia: No Tachycardia: Sinus (rate 97; borderline tachy) [place] Pointes: No WPW: No Discharge - Discharge Information Problems reviewed: Yes Clinical Impression/Diagnosis: Shortness of breath, Cocaine abuse Phencyclidine (PCP) intoxication Qualifiers: Complication of substance-induced condition: uncomplicated Qualified Code(s): F16.920 - Hallucinogen use, unspecified with intoxication, uncomplicated Condition: Stable Disposition: HOME - Follow up/Referral - Patient Discharge Instructions - Post Discharge Activity
[2020-05-24 21:02] LABS: BASO % 0.6 % (0-2.0); EOS % 1.5 % (0-4.5); HEMATOCRIT 40.5 % (35.4-49); HEMOGLOBIN 13.7 GM/dL (11.7-16.9); LYMPH % 35.7 % (8-40); MCH 29.8 pg (25.7-33.7); MCHC 33.8 g/dl (32.0-35.9); MEAN PLT VOLUME 7.7 fl (7.5-11.1); MONO % 6.6 % (3.8-10.2); NEUT % 55.6 % (42.8-82.8); PLATELET COUNT 181 K/MM3 (134-434); RDW 13.1 % (11.9-15.9); WHITE BLOOD COUNT 6.7 K/mm3 (4.0-10.0)
[2020-05-24] MEDS ORDERED: ALBUTEROL SO4 2.5/IPRATROPIUM 0.5 INH SOL 3 ML VIAL.NEB. NEB ONE ×2 (21:08→21:41)
[2020-05-24 21:20] LABS: ALBUMIN 3.5 g/dl (3.4-5.0); ALK PHOS 80 U/L (45-117); ANION GAP 8 MMOL/L (8-16); BILIRUBIN,TOTAL 0.3 mg/dL (0.2-1); BLOOD UREA NITROGEN 14.4 mg/dL (7-18); CHLORIDE 106 mmol/L (98-107); CO2 25 mmol/L (21-32); CREATININE 1.1 mg/dL (0.55-1.3); GLUCOSE,RANDOM 362 mg/dL (74-106); POTASSIUM 4.2 mmol/L (3.5-5.1); SGOT/AST 17 U/L (15-37); SGPT/ALT 29 U/L (13-61); SODIUM 140 mmol/L (136-145); TOT PROT 6.4 g/dl (6.4-8.2)
--- NOTE | 2020-05-24 23:34 | PN ---
Teaching Attending Note Name of Resident: Mk Medina ATTENDING PHYSICIAN STATEMENT I saw and evaluated the patient. I reviewed the resident's note and discussed the case with the resident. I agree with the resident's findings and plan as documented. SUBJECTIVE: Patient is a 39 year old man with a PMH of NIDDM, Polysubstance abuse, Tobacco use and Depression who presents with shortness of breath. States that episode began 1 hour prior to arrival and has since resolved. States that he was at rest, smoking 4 bags of PCP and 10 bags of crack when symptoms began. Described as a feeling of inability to breathe through the mouth and nose. Reports remote history of being told he needs to be on a "water pill" for his "water weight." Has variety of chronic complaints, such as bilateral hand paresthesias, tooth pain (seen here earlier today for this and left AMA), and bilateral toe pain. Patient denies chest pain, abdominal pain, headache, palpitations, dizziness, fever, chills, nausea, vomiting, diarrhea, constipation, dysuria, frequency, urgency, melena, hematochezia or hematuria. No sick contacts or recent travels. Family history is unremarkable. OBJECTIVE: Alert Vital Signs Period Temp Pulse Resp BP Sys/Mata Pulse Ox Last 24 Hr 98 F 81-100 18-19 112-147/84-85 95-97 HEENT: No Jaundice, eye redness or discharge, PERRLA, EOMI. Normocephalic, atraumatic. External ears are normal and hearing is grossly intact. No nasal discharge. Neck: Supple, nontender. No palpable adenopathy or thyromegaly. No JVD Chest: Good effort. Clear to auscultation and percussion. Heart: Regular. No S3, rub or murmur Abdomen: Not distended, soft, nontender and no HSM. No rebound or guarding. Normal bowel sounds. Ext: Peripheral pulses intact. No leg edema. Skin: Warm and dry. No petechiae, rash or ecchymosis. Neuro: Alert. Oriented x3. CN 2-12 grossly intact. Sensation grossly intact in all four extremities and DTR are symmetric. Psych: Appropriate mood and affect. Good insight. Home Medications Medication Instructions Recorded Sertraline HCl [Zoloft] 100 mg PO DAILY 11/15/19 Sitagliptin Phosphate [Januvia -] 100 mg PO BID #14 each 01/17/20 Abnormal Lab Results 05/24/20 05/25/20 19:50 00:00 Random Glucose 362 H Creatine Kinase 519 H CK-MB (CK-2) 4.4 H Phencyclidine Screen Positive A* Cocaine Screen Positive A* U Marijuana (THC) Screen Positive A* Current Medications Generic Name Dose Route Start Last Admin Trade Name Freq PRN Reason Stop Dose Admin Albuterol Sulfate 2 puff 05/25/20 00:01 Ventolin Hfa Inhaler - IH Q4H PRN SHORTNESS OF BREATH Albuterol/Ipratropium 1 amp 05/24/20 23:58 Duoneb - NEB Q4H PRN SHORTNESS OF BREATH Heparin Sodium (Porcine) 5,000 unit 05/25/20 06:00 Heparin - SQ TID VERA Sodium Chloride 1,000 mls @ 50 mls/hr 05/24/20 23:45 05/25/20 01:05 Normal Saline - IV 05/25/20 23:44 50 mls/hr ASDIR VERA Administration Insulin Aspart 1 vial 05/25/20 00:00 05/25/20 01:28 Novolog Vial Sliding Scale - SQ 2 unit Q6HPO VERA Administration Protocol ASSESSMENT AND PLAN: 1. Rule out ACS - Cocaine use is his smith risk factor. Now asymptomatic. EKG shows NSR at 97/minute and QTc 429 with T wave inversion III, V3, aVF with no significant ST changes - not significantly changed compared to prior EKG. Initial troponin is negative. CXR shows a nodule in the RUL - will refer to Pulmonary for followup and chest CT. Will admit to telemetry, trend troponin, get ECHO, TSH and consult Cardiology. Viral testing for COVID-19 ordered and patient placed on airborne, droplet and contact isolation. Will continue comprehensive care for all of patients comorbid conditions. 2. Uncontrolled DM For now, we will hold the home diabetes drugs and implement sliding scale insulin regimen. Provide comprehensive diabetes care with patient teaching and counseling about the importance of adherence to prescribed diabetes regimen, euglycemia, eye care and foot care. 3. Tobacco Use Counseled on risks associated with tobacco use. We will provide patient all the necessary assistance to facilitate smoking cessation and prescribe Nicotine patch. 4. Obesity Counseled on the risks associated with obesity. Will provide patient all the necessary assistance, counseling and positive reinforcement to facilitate weight loss. Consult job service consultant. 5. Polysubstance abuse - Monitor for drug withdrawal. Implement [facility] alcohol withdrawal protocol and do neurochecks. Implement seizure, fall and aspiration precautions. Treat with IV Banana bag, thiamine and folic acid. Monitor and replete electrolytes (Ca,Mg,K,P). Counseled patient about abstaining from alcohol/illicit drugs. Will consult web site specialist and refer to alcohol/drug detox upon discharge. 6. Hypertension Not officially confirmed to have hypertension - will monitor closely. Will get urinalysis and urine protein/creatinine ratio. May benefit from ACEI or ARB therapy. Patient counseled on the injurious effects of uncontrolled hypertension. Nonpharmacologic measures to control hypertension like weight loss, salt restriction and exercise stressed. Importance of adherence to treatment regimen and attainment of normotension emphasized. 7. DVT prophylaxis - Lovenox 40 mg SQ q 24 hours. 8. Advance directives - Full code
[2020-05-24] MEDS ORDERED: SODIUM CHLORIDE 1,000 ML IV SCH (23:45)
[2020-05-24] MEDS ORDERED: ALBUTEROL SO4 2.5/IPRATROPIUM 0.5 INH SOL 3 ML VIAL.NEB. NEB PRN (23:58)
[2020-05-25] MEDS ORDERED: ALBUTEROL SO4 HFA INHALER IH PRN (00:01)
--- NOTE | 2020-05-25 00:07 | HP ---
CHIEF COMPLAINT: shortness of breath PCP: HISTORY OF PRESENT ILLNESS: Patient is a 39 year old male with history of childhood asthma, depression, diabetes mellitus, presents with complaint of shortness of breath. Patient states that these symptoms started one week ago after sexual intercourse with female partner. He denies chest pain, or loss of consciousness however admits to intermittent shortness of breath for the past week. States the symptoms recurred approx 8pm this evening while he was resting prompting his presentation. He endorses orthopnea over the past week, however unable to quantify number of pillows stating that he sleeps more upright on his furniture. Of note- he endorsed sudden onset of the chest pain after smoking 4 bags of PCP, and 10 bags of crack cocaine to the ED. He denies prior occurrence of these symptoms. He denies subjective fevers, chills. ER course was notable for: (1) chest radiograph (2) Troponin 0.02, EKG reveals normal sinus rhythm (3) Recent Travel: denies PAST MEDICAL HISTORY: asthma, depression, diabetes mellitus PAST SURGICAL HISTORY: denies Social History: incarcerated within the past year. currently lives in private home with his mother. Smoking: smokes one pack per day Alcohol: endorses drinking 22oz of beer yesterday. denies any liquor. Drugs: admits PCP Allergies No Known Allergies Allergy (Verified 05/24/20 20:04) HOME MEDICATIONS: Home Medications Medication Instructions Recorded Sertraline HCl [Zoloft] 100 mg PO DAILY 11/15/19 traZODone HCL [Desyrel -] 50 mg PO HS 11/29/19 Clotrimazole [Lotrimin -] 1 applic TP BID #1 tube 01/17/20 Insulin (LOG) Aspart [NovoLOG -] 4 units SQ BID@0700,1630 #1 vial 01/17/20 Insulin (Levemir) [Levemir Vial] 18 units SQ HS #1 units 01/17/20 Sitagliptin Phosphate [Januvia -] 100 mg PO BID #14 each 01/17/20 metFORMIN XR [Glucophage Xr -] 1,000 mg PO ACBK #14 tab.sr.24h 01/17/20 Buprenorphine HCl/Naloxone HCl 1 each SL DAILY #7 film MDD 1 01/24/20 [Suboxone 12 mg-3 mg Sl Film] Buprenorphine HCl/Naloxone HCl 1 each SL DAILY #7 film MDD 12mg 01/31/20 [Suboxone 12 mg-3 mg Sl Film] Buprenorphine HCl/Naloxone HCl 1 each SL BID #14 film MDD 24mg 02/07/20 [Suboxone 12 mg-3 mg Sl Film] Ibuprofen 800 mg PO TID 7 Days #21 tablet 05/24/20 REVIEW OF SYSTEMS As per [facility] PHYSICAL EXAMINATION Vital Signs - 24 hr 05/24/20 20:02 Temperature 98 F Pulse Rate 100 H Respiratory 18 Rate Blood Pressure 147/85 O2 Sat by Pulse 97 Oximetry (%) GENERAL: The patient is awake, alert, oriented to person, place, in no acute distress. HEAD: Normocephalic, atraumatic. EYES: PERRL, extraocular movements intact, sclera anicteric, conjunctiva clear. ENT: Oropharynx clear, without erythema or exudates. Moist mucous membranes. NECK: Trachea midline, full range of motion. Supple without lymphadenopathy. LUNGS: Breath sounds equal, clear to auscultation bilaterally. No wheezes, no crackles. No accessory muscle use. HEART: Regular rate and rhythm. S1, S2 without murmur, rub or gallop. ABDOMEN: Soft, nondistended, nontender to light and deep palpation x4 quadrants. No rebound tenderness, no guarding. Normoactive bowel sounds x4 quadrants. No hepatosplenomegaly, no masses appreciated. EXTREMITIES: 2+ radial, dorsalis pedis pulses bilaterally. Warm, well-perfused. No lower extremity edema bilaterally. NEUROLOGICAL: Cranial nerves II through XII grossly intact. Normal speech. No gross focal deficits. PSYCH: Normal mood, normal affect upon my encounter. SKIN: Warm, dry. Laboratory Results - last 24 hr 05/24/20 05/24/20 05/24/20 19:50 19:50 19:50 WBC 6.7 RBC 4.60 Hgb 13.7 Hct 40.5 MCV 88.0 MCH 29.8 MCHC 33.8 RDW 13.1 Plt Count 181 MPV 7.7 Absolute Neuts (auto) 3.7 Neutrophils % 55.6 Lymphocytes % 35.7 Monocytes % 6.6 Eosinophils % 1.5 Basophils % 0.6 Nucleated RBC % 0 Sodium 140 Potassium 4.2 Chloride 106 Carbon Dioxide 25 Anion Gap 8 BUN 14.4 Creatinine 1.1 Est GFR (CKD-EPI)AfAm 96.81 Est GFR (CKD-EPI)NonAf 83.53 Random Glucose 362 H Calcium 9.0 Total Bilirubin 0.3 AST 17 ALT 29 Alkaline Phosphatase 80 Creatine Kinase 519 H Creatine Kinase Index 0.8 CK-MB (CK-2) 4.4 H Troponin I < 0.02 Total Protein 6.4 Albumin 3.5 Salicylates 4.0 Acetaminophen < 2.0 Alcohol, Quantitative < 3 ASSESSMENT/PLAN: Patient is a 39 year old male with history of childhood asthma, depression, diabetes mellitus, presents with complaint of shortness of breath. Shortness of breath -Concern for ACS given history of cocaine use. Upon my encounter patient saturating 96-99% on room air. -Given history of childhood asthma will also order Duonebs Q4 hours PRN. -Initial EKG does not reveal acute ischemic changes. -Troponin 0.02. Will trend -Cardiology consult (Dr. Priscila Breaux) -Telemetry monitoring -Follow cardiac transthoracic ECHO Polysubstance use disorder -Currently now in Withdrawal (CIWA-1). -Thiamine, Folic Acid, MVI. Fall precautions. -Consider librium protocol if CIWA increases with withdrawal symptoms. -Counselled regarding cocaine, alcohol cessation -Follow urine toxicology -Requires reconciliation of his Suboxone dose- to be reinstated. Addiction medicine consult. -Fall risk precautions Right upper node nodule -Incidentally noted on CXR- noted on prior imgaging studies as well.Concern for lung cancer given smoking histiory. -Will require follow up imaging, and pulmonology follow up. -Pulmonology consult (Dr. Almodovar) requested. Diabetes mellitus -Holding home oral hypoglycemics -Insulin sliding scale ACHS -Fingerstick blood glucose ACHS -Follow HbA1c History of depression -Reportedly takes SSRI- will need to reconcile patient's medications prior to reinstating. Elevated CPK -Denies any recent trauma or immobilization. May be secondary to drug use. -Patient received fluid bolus in ED, will continue gentle hydration. FEN -Gentle hydration IV normal saline at 50mL/ hour -Follow BMP -NPO in anticipation of cardiac workup Prophylaxis -Lovenox 40mg subq daily Disposition -Telemetry observation Visit type - Emergency Visit Emergency Visit: Yes ED Registration Date: 05/24/20 Care time: The patient presented to the Emergency Department on the above date and was hospitalized for further evaluation of their emergent condition. - New Patient This patient is new to me today: Yes Date on this admission: 05/25/20 - Critical Care Critical Care patient: No ATTENDING PHYSICIAN STATEMENT I saw and evaluated the patient. I reviewed the resident's note and discussed the case with the resident. I agree with the resident's findings and plan as documented. SUBJECTIVE: OBJECTIVE: ASSESSMENT AND PLAN:
[2020-05-25 01:34] LABS: OPIATES, URI NEGATIVE ng/ml (CUTOFF=300); URINE AMPHETAMINES NEGATIVE ng/ml (CUTOFF=500); URINE BARBITURATES NEGATIVE ng/ml (CUTOFF=200); URINE BENZODIAZEPINES NEGATIVE ng/ml (CUTOFF=200)
[2020-05-25 01:41] LABS: METHADONE, UR NEGATIVE ng/ml (CUTOFF=300)
[2020-05-25 01:44] LABS: COCAINE, UR POSITIVE ng/ml (CUTOFF=300); PHENCYCLIDINE,URINE POSITIVE ng/ml (CUTOFF=25)
[2020-05-25 05:48] LABS: HEMATOCRIT 40.3 % (35.4-49); HEMOGLOBIN 13.7 GM/dL (11.7-16.9); MCH 29.6 pg (25.7-33.7); MCHC 33.9 g/dl (32.0-35.9); MEAN CELL VOLUME 87.4 fl (80-96); PLATELET COUNT 173 K/MM3 (134-434); RBC 4.62 M/mm3 (4.00-5.60); RDW 13.5 % (11.9-15.9); WHITE BLOOD COUNT 7.6 K/mm3 (4.0-10.0)
[2020-05-25] MEDS ORDERED: INSULIN SLIDING SCALE (NOVOLOG) 1 VIAL SQ SCH ×2 (06:00)
[2020-05-25] MEDS ORDERED: HEPARIN NA (PORCINE) 5,000 UNITS/ML 1ML VIAL SQ SCH (06:00)
[2020-05-25 06:12] LABS: CALCIUM 8.9 mg/dL (8.5-10.1); CREATININE 0.9 mg/dL (0.55-1.3); MAGNESIUM 1.9 mg/dL (1.8-2.4); PHOSPHOROUS 4.5 mg/dL (2.5-4.9); POTASSIUM 4.1 mmol/L (3.5-5.1)
[2020-05-25 07:51] VITALS: BP 124/90; PULSE 74; TEMP 99.2
--- NOTE | 2020-05-25 07:58 | DS ---
Physical Exam: SUBJECTIVE: Patient seen and examined OBJECTIVE: Vital Signs Period Temp Pulse Resp BP Sys/Mata Pulse Ox Last 24 Hr 98 F-99.2 F 70-100 14-19 112-147/84-90 95-100 PHYSICAL EXAM GENERAL: The patient is awake, alert, and fully oriented, in no acute distress. HEAD: Normal with no signs of trauma. EYES: PERRL, extraocular movements intact, sclera anicteric, conjunctiva clear. ENT: Ears normal, nares patent, oropharynx clear without exudates, moist mucous membranes. NECK: Trachea midline, full range of motion, supple. LUNGS: Breath sounds equal, clear to auscultation bilaterally, no wheezes, no crackles, no accessory muscle use. HEART: Regular rate and rhythm, S1, S2 without murmur, rub or gallop. ABDOMEN: Soft, nontender, nondistended, normoactive bowel sounds, no guarding, no rebound, no hepatosplenomegaly, no masses. EXTREMITIES: 2+ pulses, warm, well-perfused, no edema. NEUROLOGICAL: Cranial nerves II through XII grossly intact. Normal speech, gait not observed. PSYCH: Normal mood, normal affect. SKIN: Warm, dry, normal turgor, no rashes or lesions noted. LABS Laboratory Results - last 24 hr 05/24/20 05/24/20 05/24/20 19:50 19:50 19:50 WBC 6.7 RBC 4.60 Hgb 13.7 Hct 40.5 MCV 88.0 MCH 29.8 MCHC 33.8 RDW 13.1 Plt Count 181 MPV 7.7 Absolute Neuts (auto) 3.7 Neutrophils % 55.6 Lymphocytes % 35.7 Monocytes % 6.6 Eosinophils % 1.5 Basophils % 0.6 Nucleated RBC % 0 Sodium 140 Potassium 4.2 Chloride 106 Carbon Dioxide 25 Anion Gap 8 BUN 14.4 Creatinine 1.1 Est GFR (CKD-EPI)AfAm 96.81 Est GFR (CKD-EPI)NonAf 83.53 POC Glucometer Random Glucose 362 H Hemoglobin A1c % Calcium 9.0 Phosphorus Magnesium Total Bilirubin 0.3 AST 17 ALT 29 Alkaline Phosphatase 80 Creatine Kinase 519 H Creatine Kinase Index 0.8 CK-MB (CK-2) 4.4 H Troponin I < 0.02 Total Protein 6.4 Albumin 3.5 TSH Salicylates 4.0 Opiates Screen Methadone Screen Acetaminophen < 2.0 Barbiturate Screen Phencyclidine Screen Ur Amphetamines Screen MDMA (Ecstasy) Screen Benzodiazepines Screen Cocaine Screen U Marijuana (THC) Screen Alcohol, Quantitative < 3 05/25/20 05/25/20 05/25/20 00:00 00:04 00:59 WBC RBC Hgb Hct MCV MCH MCHC RDW Plt Count MPV Absolute Neuts (auto) Neutrophils % Lymphocytes % Monocytes % Eosinophils % Basophils % Nucleated RBC % Sodium Potassium Chloride Carbon Dioxide Anion Gap BUN Creatinine Est GFR (CKD-EPI)AfAm Est GFR (CKD-EPI)NonAf POC Glucometer 190 Random Glucose Hemoglobin A1c % Calcium Phosphorus Magnesium Total Bilirubin AST ALT Alkaline Phosphatase Creatine Kinase Creatine Kinase Index CK-MB (CK-2) Troponin I < 0.02 Total Protein Albumin TSH Salicylates Opiates Screen Negative Methadone Screen Negative Acetaminophen Barbiturate Screen Negative Phencyclidine Screen Positive A* Ur Amphetamines Screen Negative MDMA (Ecstasy) Screen Negative Benzodiazepines Screen Negative Cocaine Screen Positive A* U Marijuana (THC) Screen Positive A* Alcohol, Quantitative 05/25/20 05/25/20 05/25/20 04:20 05:29 05:29 WBC 7.6 RBC 4.62 Hgb 13.7 Hct 40.3 MCV 87.4 MCH 29.6 MCHC 33.9 RDW 13.5 Plt Count 173 MPV 7.0 L Absolute Neuts (auto) Neutrophils % Lymphocytes % Monocytes % Eosinophils % Basophils % Nucleated RBC % Sodium 144 Potassium 4.1 Chloride 110 H Carbon Dioxide 26 Anion Gap 8 BUN 15.0 Creatinine 0.9 Est GFR (CKD-EPI)AfAm 123.39 Est GFR (CKD-EPI)NonAf 106.46 POC Glucometer 161 Random Glucose 149 H Hemoglobin A1c % Calcium 8.9 Phosphorus 4.5 Magnesium 1.9 Total Bilirubin AST ALT Alkaline Phosphatase Creatine Kinase Creatine Kinase Index CK-MB (CK-2) Troponin I Total Protein Albumin TSH Salicylates Opiates Screen Methadone Screen Acetaminophen Barbiturate Screen Phencyclidine Screen Ur Amphetamines Screen MDMA (Ecstasy) Screen Benzodiazepines Screen Cocaine Screen U Marijuana (THC) Screen Alcohol, Quantitative 05/25/20 05/25/20 05/25/20 05:29 05:29 06:56 WBC RBC Hgb Hct MCV MCH MCHC RDW Plt Count MPV Absolute Neuts (auto) Neutrophils % Lymphocytes % Monocytes % Eosinophils % Basophils % Nucleated RBC % Sodium Potassium Chloride Carbon Dioxide Anion Gap BUN Creatinine Est GFR (CKD-EPI)AfAm Est GFR (CKD-EPI)NonAf POC Glucometer 157 Random Glucose Hemoglobin A1c % 8.4 H Calcium Phosphorus Magnesium Total Bilirubin AST ALT Alkaline Phosphatase Creatine Kinase Creatine Kinase Index CK-MB (CK-2) Troponin I < 0.02 Total Protein Albumin TSH 2.32 Salicylates Opiates Screen Methadone Screen Acetaminophen Barbiturate Screen Phencyclidine Screen Ur Amphetamines Screen MDMA (Ecstasy) Screen Benzodiazepines Screen Cocaine Screen U Marijuana (THC) Screen Alcohol, Quantitative 05/25/20 07:19 WBC RBC Hgb Hct MCV MCH MCHC RDW Plt Count MPV Absolute Neuts (auto) Neutrophils % Lymphocytes % Monocytes % Eosinophils % Basophils % Nucleated RBC % Sodium Potassium Chloride Carbon Dioxide Anion Gap BUN Creatinine Est GFR (CKD-EPI)AfAm Est GFR (CKD-EPI)NonAf POC Glucometer 178 Random Glucose Hemoglobin A1c % Calcium Phosphorus Magnesium Total Bilirubin AST ALT Alkaline Phosphatase Creatine Kinase Creatine Kinase Index CK-MB (CK-2) Troponin I Total Protein Albumin TSH Salicylates Opiates Screen Methadone Screen Acetaminophen Barbiturate Screen Phencyclidine Screen Ur Amphetamines Screen MDMA (Ecstasy) Screen Benzodiazepines Screen Cocaine Screen U Marijuana (THC) Screen Alcohol, Quantitative HOSPITAL COURSE: Date of Admission:05/24/20 Date of Discharge: 05/25/20 Discharge Summary Problems reviewed: Yes Reason For Visit: PHENCYCLIDINE (PCP) INTOXICATION,SOB,COCAINE ABUSE Current Active Problems Cocaine abuse (Acute) Shortness of breath (Acute) Phencyclidine (PCP) intoxication (Chronic) Condition: Stable - Instructions Referrals: Chace Epps MD [Primary Care Provider] - Disposition: AGAINST MEDICAL ADVICE - Home Medications Comprehensive Discharge Medication List: Ambulatory Orders Sertraline HCl [Zoloft] 100 mg PO DAILY 11/15/19 Sitagliptin Phosphate [Januvia -] 100 mg PO BID #14 each 01/17/20 ATTENDING PHYSICIAN STATEMENT I saw and evaluated the patient. I reviewed the resident's note and discussed the case with the resident. I agree with the resident's findings and plan as documented. SUBJECTIVE: OBJECTIVE: ASSESSMENT AND PLAN:
[2020-05-25] MEDS ORDERED: ENOXAPARIN NA (PORCINE) 40 MG/0.4 ML DISP.SYRIN SQ SCH (10:00)
[2020-05-25] MEDS ORDERED: THIAMINE HCL 100 MG TABLET (FP) PO SCH (10:00)
[2020-05-25] MEDS ORDERED: NICOTINE 21 MG/24 HOURS TOPICAL PATCH TD SCH (10:00)
[2020-05-25] MEDS ORDERED: MULTIVITAMINS (DAILY MVI) TABLET (FP) PO SCH (10:00)
[2020-05-25] MEDS ORDERED: FOLIC ACID 1 MG TABLET (FP) PO SCH (10:00)
--- NOTE | 2020-05-25 10:51 | EKG ---
Test Reason : Blood Pressure : / mmHG Vent. Rate : 097 BPM Atrial Rate : 097 BPM P-R Int : 174 ms QRS Dur : 088 ms QT Int : 338 ms P-R-T Axes : 056 077 014 degrees QTc Int : 429 ms NORMAL SINUS RHYTHM NONSPECIFIC ST AND T WAVE ABNORMALITY ABNORMAL ECG WHEN COMPARED WITH ECG OF 25-FEB-2019 09:41, NONSPECIFIC T WAVE ABNORMALITY NOW EVIDENT IN ANTERIOR LEADS Confirmed by Nichol Henson ([id number]) on 05/25/2020 10:51:06 AM Referred By: Confirmed By:Nichol Henson
== END 2020-05-25 07:53 | disposition left against medical advice (07) ==
LOC: JER 19:59 → JERBED 22:51
PROVIDERS: ADMIT Internal Medicine; ATTEND Internal Medicine
PROC: 3E0F7GC Introduction of Other Therapeutic Substance into Respiratory Tract, Via Natural or Artificial Opening (ICD-10-PCS; 2020-05-24)
PROC: 3E0337Z Introduction of Electrolytic and Water Balance Substance into Peripheral Vein, Percutaneous Approach (ICD-10-PCS; 2020-05-24)
PROC: 3E013VG Introduction of Insulin into Subcutaneous Tissue, Percutaneous Approach (ICD-10-PCS; principal; 2020-05-25)
DX: F16.920 Hallucinogen use, unspecified with intoxication, uncomplicated (principal); F17.210 Nicotine dependence, cigarettes, uncomplicated; R06.02 Shortness of breath; F14.10 Cocaine abuse, uncomplicated; E66.01 Morbid (severe) obesity due to excess calories; Z68.35 Body mass index [BMI] 35.0-35.9, adult; J45.909 Unspecified asthma, uncomplicated; F32.9 Major depressive disorder, single episode, unspecified; Z29.9 Encounter for prophylactic measures, unspecified
CPT/HCPCS: 36415; 71045-TC-FY; 80048; 80053; 80307; 82550; 82553; 82962; 83036; 83735; 84100; 84443; 84484; 85025; 85027; 93005; 93010; 94640; 96360; 96361; 96372; 99285-25; G0378; U0003

== ENCOUNTER 2020-10-04 00:05 | Emergency (ER) | payer OTHER ==
[2020-10-04 00:40] VITALS: BP 143/75; PULSE 91; TEMP 98.2; BMI 35.5
[2020-10-04] MEDS ORDERED: ALBUTEROL SO4 HFA INHALER IH ONE ×2 (01:03→01:06)
[2020-10-04] MEDS ORDERED: ACETAMINOPHEN 325 MG TABLET (FP) PO ONE (01:18)
[2020-10-04] MEDS ORDERED: FAMOTIDINE 20 MG TABLET PO ONE (01:26)
[2020-10-04] MEDS ORDERED: FAMOTIDINE 20 MG TABLET ONE (01:34)
[2020-10-04] MEDS ORDERED: ACETAMINOPHEN 325 MG TABLET (FP) ONE (01:34)
[2020-10-04 02:05] LABS: BASO % 0.7 % (0-2.0); EOS % 1.3 % (0-4.5); HEMATOCRIT 43.1 % (35.4-49); HEMOGLOBIN 14.3 GM/dL (11.7-16.9); LYMPH % 44.2 % (8-40); MCH 29.1 pg (25.7-33.7); MCHC 33.2 g/dl (32.0-35.9); MEAN CELL VOLUME 87.8 fl (80-96); MEAN PLT VOLUME 7.9 fl (7.5-11.1); MONO % 5.9 % (3.8-10.2); NEUT % 47.9 % (42.8-82.8); PLATELET COUNT 171 K/MM3 (134-434); RBC 4.91 M/mm3 (4.00-5.60); RDW 12.9 % (11.9-15.9)
[2020-10-04 02:22] LABS: CHLORIDE 105 mmol/L (98-107); POTASSIUM 3.8 mmol/L (3.5-5.1); SODIUM 140 mmol/L (136-145)
[2020-10-04 02:24] LABS: CALCIUM 8.8 mg/dL (8.5-10.1)
[2020-10-04 02:25] LABS: ALBUMIN 3.9 g/dl (3.4-5.0); ANION GAP 9 MMOL/L (8-16); BLOOD UREA NITROGEN 16.3 mg/dL (7-18); CO2 25 mmol/L (21-32); GLUCOSE,RANDOM 147 mg/dL (74-106)
[2020-10-04 02:28] LABS: CREATININE 0.9 mg/dL (0.55-1.3); SGOT/AST 41 U/L (15-37); SGPT/ALT 42 U/L (13-61)
[2020-10-04 02:32] LABS: ALK PHOS 69 U/L (45-117); BILIRUBIN,TOTAL 0.6 mg/dL (0.2-1); TOT PROT 6.8 g/dl (6.4-8.2)
== END 2020-10-04 03:58 | disposition home or self-care (01) ==
LOC: JER 00:05
PROC: 3E0F7GC Introduction of Other Therapeutic Substance into Respiratory Tract, Via Natural or Artificial Opening (ICD-10-PCS; principal; 2020-10-04)
DX: F16.20 Hallucinogen dependence, uncomplicated (principal); K59.00 Constipation, unspecified; R05 Cough
CPT/HCPCS: 36415; 71046-TC-FY; 80053; 82550; 82553; 84484; 85025; 87804; 93005; 93010; 99285-25; C9803; U0003

== ENCOUNTER 2020-11-13 07:21 | Emergency (ER) | payer OTHER ==
[2020-11-13 08:00] VITALS: BP 129/74; PULSE 80; TEMP 98.2; BMI 37.2
[2020-11-13 09:33] LABS: BASO % 0.6 % (0-2.0); EOS % 1.9 % (0-4.5); HEMATOCRIT 41.7 % (35.4-49); HEMOGLOBIN 14.4 GM/dL (11.7-16.9); MCH 29.8 pg (25.7-33.7); MCHC 34.4 g/dl (32.0-35.9); MEAN CELL VOLUME 86.5 fl (80-96); MEAN PLT VOLUME 7.4 fl (7.5-11.1); NEUT % 60.5 % (42.8-82.8); PLATELET COUNT 197 K/MM3 (134-434); RBC 4.82 M/mm3 (4.00-5.60); RDW 13.6 % (11.9-15.9); WHITE BLOOD COUNT 6.5 K/mm3 (4.0-10.0)
[2020-11-13 09:49] LABS: POTASSIUM 4.3 mmol/L (3.5-5.1)
[2020-11-13 09:52] LABS: ALBUMIN 3.5 g/dl (3.4-5.0); CALCIUM 9.2 mg/dL (8.5-10.1)
[2020-11-13 09:56] LABS: CREATININE 0.8 mg/dL (0.55-1.3)
[2020-11-13 09:57] LABS: BILIRUBIN,TOTAL 0.5 mg/dL (0.2-1); TOT PROT 6.7 g/dl (6.4-8.2)
== END 2020-11-13 11:59 | disposition home or self-care (01) ==
LOC: JER 07:21
DX: R19.7 Diarrhea, unspecified (principal); E11.9 Type 2 diabetes mellitus without complications
CPT/HCPCS: 36415; 80053; 83690; 83735; 85025; 99284-25

== ENCOUNTER 2020-12-07 04:22 | Emergency (ER) | payer OTHER ==
[2020-12-07 04:33] VITALS: BP 130/79; PULSE 87; TEMP 98.6; BMI 30.4
[2020-12-07] MEDS ORDERED: ACETAMINOPHEN 500 MG TABLET (FP) PO ONE (04:46)
[2020-12-07] MEDS ORDERED: ACETAMINOPHEN 325 MG TABLET (FP) ONE (04:49)
== END 2020-12-07 06:28 | disposition home or self-care (01) ==
LOC: JER 04:22
DX: M25.561 Pain in right knee (principal)
CPT/HCPCS: 73560-TC-RT-FY; 99284-25

== ENCOUNTER 2021-04-03 07:56 | Emergency (ER) | payer OTHER ==
[2021-04-03 08:06] VITALS: BP 146/95; PULSE 80; BMI 37.2
[2021-04-03] MEDS ORDERED: SODIUM CHLORIDE 1,000 ML IV STA (08:24)
[2021-04-03] MEDS ORDERED: METOCLOPRAMIDE HCL INJECTION 10 MG/2 ML VIAL IVPB ONE (08:24)
[2021-04-03] MEDS ORDERED: ACETAMINOPHEN 1000 MG/100 ML VIAL (NON FORMULARY) IVPB ONE (08:24)
[2021-04-03] MEDS ORDERED: ACETAMINOPHEN 325 MG TABLET (FP) PO ONE (08:36)
[2021-04-03 09:39] LABS: BASO % 0.9 % (0-2.0); EOS % 1.5 % (0-4.5); HEMATOCRIT 41.3 % (35.4-49); HEMOGLOBIN 14.2 GM/dL (11.7-16.9); LYMPH % 35.3 % (8-40); MCH 30.1 pg (25.7-33.7); MCHC 34.4 g/dl (32.0-35.9); MEAN CELL VOLUME 87.5 fl (80-96); MEAN PLT VOLUME 6.7 fl (7.5-11.1); NEUT % 54.3 % (42.8-82.8); PLATELET COUNT 188 10^3/uL (134-434); RBC 4.71 M/mm3 (4.00-5.60); WHITE BLOOD COUNT 6.3 K/mm3 (4.0-10.0)
[2021-04-03 10:00] LABS: CALCIUM 9.3 mg/dL (8.5-10.1)
[2021-04-03 10:01] LABS: ALBUMIN 4.1 g/dl (3.4-5.0); BLOOD UREA NITROGEN 20.8 mg/dL (7-18)
[2021-04-03 10:02] LABS: URINE AMPHETAMINES NEGATIVE (NEGATIVE)
[2021-04-03 10:04] LABS: CREATININE 0.9 mg/dL (0.55-1.3)
[2021-04-03 10:05] LABS: URINE BARBITURATES NEGATIVE (NEGATIVE)
[2021-04-03 10:06] LABS: BILIRUBIN,TOTAL 0.7 mg/dL (0.2-1); OPIATES, URI NEGATIVE (NEGATIVE); TOT PROT 7.1 g/dl (6.4-8.2); URINE BENZODIAZEPINES NEGATIVE (NEGATIVE)
[2021-04-03 10:15] LABS: METHADONE, UR NEGATIVE (NEGATIVE)
[2021-04-03 10:22] LABS: COCAINE, UR NEGATIVE (NEGATIVE); PHENCYCLIDINE,URINE POSITIVE (NEGATIVE)
== END 2021-04-03 11:16 | disposition left against medical advice (07) ==
LOC: JER 07:56
PROC: 3E033NZ Introduction of Analgesics, Hypnotics, Sedatives into Peripheral Vein, Percutaneous Approach (ICD-10-PCS; principal; 2021-04-03)
PROC: 3E033GC Introduction of Other Therapeutic Substance into Peripheral Vein, Percutaneous Approach (ICD-10-PCS; 2021-04-03)
PROC: 3E0337Z Introduction of Electrolytic and Water Balance Substance into Peripheral Vein, Percutaneous Approach (ICD-10-PCS; 2021-04-03)
DX: R51.9 Headache, unspecified (principal)
CPT/HCPCS: 36415; 70450-TC; 80053; 80307; 85025; 99285-25

== ENCOUNTER 2021-08-24 01:04 | Emergency (ER) | payer OTHER ==
[2021-08-24 02:27] VITALS: BMI 35.0
[2021-08-24] MEDS ORDERED: ACETAMINOPHEN 1000 MG/100 ML VIAL IVPB ONE (03:19)
[2021-08-24] MEDS ORDERED: ACETAMINOPHEN INJECTION 100 ML IVPB ONE (03:20)
[2021-08-24 03:45] LABS: BASO % 1.3 % (0-2.0); EOS % 1.8 % (0-4.5); HEMATOCRIT 43.5 % (35.4-49); HEMOGLOBIN 14.9 GM/dL (11.7-16.9); LYMPH % 49.6 % (8-40); MCHC 34.3 g/dl (32.0-35.9); MEAN CELL VOLUME 87.5 fl (80-96); MEAN PLT VOLUME 6.9 fl (7.5-11.1); MONO % 7.2 % (3.8-10.2); NEUT % 40.1 % (42.8-82.8); PLATELET COUNT 170 10^3/uL (134-434); RBC 4.97 M/mm3 (4.00-5.60); WHITE BLOOD COUNT 6.5 K/mm3 (4.0-10.0)
[2021-08-24 03:58] LABS: CHLORIDE 107 mmol/L (98-107); SODIUM 142 mmol/L (136-145)
[2021-08-24 04:01] LABS: ALBUMIN 3.8 g/dl (3.4-5.0); ANION GAP 4 MMOL/L (8-16); BLOOD UREA NITROGEN 17.4 mg/dL (7-18); CALCIUM 8.7 mg/dL (8.5-10.1); CO2 31 mmol/L (21-32); GLUCOSE,RANDOM 120 mg/dL (74-106); LIPASE 86 U/L (73-393)
[2021-08-24 04:04] LABS: CREATININE 0.9 mg/dL (0.55-1.3); SGOT/AST 28 U/L (15-37); SGPT/ALT 36 U/L (13-61)
[2021-08-24 04:06] LABS: BILIRUBIN,TOTAL 0.6 mg/dL (0.2-1); TOT PROT 6.9 g/dl (6.4-8.2)
[2021-08-24 04:07] LABS: ALK PHOS 92 U/L (45-117)
[2021-08-24 09:17] LABS: EPI CELLS 17 /uL (0-25.1); HYALINE CASTS 28 /uL (0-3.1); URINE APPEARANCE CLOUDY; URINE BACTERIA 271 /uL (0-1359); URINE BILIRUBIN NEGATIVE (NEGATIVE); URINE COLOR DK YELLOW; URINE GLUCOSE (UA) NEGATIVE (NEGATIVE); URINE KETONE TRACE (NEGATIVE); URINE LEUK ESTERASE NEGATIVE (NEGATIVE); URINE NITRITE NEGATIVE (NEGATIVE); URINE PROTEIN 2+ (NEGATIVE); URINE RBC 9 /uL (0-23.9)
[2021-08-24 10:38] LABS: URINE WBC 136.5 /uL (0-25.8)
[2021-08-24 11:19] VITALS: BP 130/69; PULSE 74; TEMP 98.2
== END 2021-08-24 11:18 | disposition home or self-care (01) ==
LOC: JER 01:04
PROC: 3E0333Z Introduction of Anti-inflammatory into Peripheral Vein, Percutaneous Approach (ICD-10-PCS; principal; 2021-08-24)
DX: R10.30 Lower abdominal pain, unspecified (principal)
CPT/HCPCS: 36415; 74176-TC; 76870-TC; 80053; 81003; 83605; 83690; 84484; 85025; 87086; 93005; 93010; 99285-25; J0131

== ENCOUNTER 2021-11-22 02:36 | Emergency (ER) | payer OTHER ==
[2021-11-22 02:56] VITALS: BP 125/85; PULSE 82; BMI 36.0
[2021-11-22] MEDS ORDERED: ACETAMINOPHEN 500 MG TABLET (FP) PO ONE (03:18)
[2021-11-22] MEDS ORDERED: ACETAMINOPHEN 325 MG TABLET (FP) ONE (03:22)
== END 2021-11-22 04:35 | disposition home or self-care (01) ==
LOC: JER 02:36
DX: S09.90XA Unspecified injury of head, initial encounter (principal); M25.512 Pain in left shoulder; W01.0XXA Fall on same level from slipping, tripping and stumbling without subsequent striking against object, initial encounter
CPT/HCPCS: 70450-TC; 73030-TC-LT-FY; 99284-25

== ENCOUNTER 2021-12-12 00:21 | Emergency (ER) | payer OTHER ==
[2021-12-12 00:36] VITALS: PULSE 87; BMI 34.9
[2021-12-12] MEDS ORDERED: METOCLOPRAMIDE HCL INJECTION 10 MG/2 ML VIAL IVPB ONE (00:46)
[2021-12-12] MEDS ORDERED: SODIUM CHLORIDE 0.9% 500 ML INFUS.BAG IV ONE (00:46)
[2021-12-12] MEDS ORDERED: ACETAMINOPHEN 1000 MG/100 ML BAG IVPB ONE (00:46)
[2021-12-12] MEDS ORDERED: MECLIZINE HCL 25 MG TABLET (FP) PO ONE (00:49)
[2021-12-12] MEDS ORDERED: METOCLOPRAMIDE HCL INJECTION 10 MG/2 ML VIAL ONE (00:51)
[2021-12-12] MEDS ORDERED: ACETAMINOPHEN INJECTION 100 ML IVPB ONE (00:51)
[2021-12-12] MEDS ORDERED: MECLIZINE HCL 25 MG TABLET (FP) ONE (01:06)
[2021-12-12 01:15] LABS: BASO % 0.8 % (0-2.0); EOS % 1.9 % (0-4.5); HEMATOCRIT 40.6 % (35.4-49); HEMOGLOBIN 14.1 GM/dL (11.7-16.9); LYMPH % 43.9 % (8-40); MCH 30.6 pg (25.7-33.7); MCHC 34.6 g/dl (32.0-35.9); MEAN CELL VOLUME 88.3 fl (80-96); MEAN PLT VOLUME 6.8 fl (7.5-11.1); MONO % 7.4 % (3.8-10.2); PLATELET COUNT 172 10^3/uL (134-434); RDW 13.2 % (11.9-15.9)
[2021-12-12 01:49] LABS: ALBUMIN 3.7 g/dl (3.4-5.0); CALCIUM 9.1 mg/dL (8.5-10.1)
[2021-12-12 01:51] LABS: CREATININE 0.9 mg/dL (0.55-1.3)
[2021-12-12 01:54] LABS: BILIRUBIN,TOTAL 0.4 mg/dL (0.2-1); TOT PROT 6.7 g/dl (6.4-8.2)
[2021-12-12 02:19] LABS: BLOOD UREA NITROGEN 23.6 mg/dL (7-18)
[2021-12-12 06:45] VITALS: BP 132/76; TEMP 98
== END 2021-12-12 06:44 | disposition home or self-care (01) ==
LOC: JER 00:21
PROC: 3E033NZ Introduction of Analgesics, Hypnotics, Sedatives into Peripheral Vein, Percutaneous Approach (ICD-10-PCS; principal; 2021-12-12)
PROC: 3E033GC Introduction of Other Therapeutic Substance into Peripheral Vein, Percutaneous Approach (ICD-10-PCS; 2021-12-12)
DX: R51.9 Headache, unspecified (principal)
CPT/HCPCS: 36415; 70450-TC; 80053; 85025; 93005; 93010; 99285-25

== ENCOUNTER → 2022-06-22 | Emergency (ER) | payer OTHER ==
[~2022-06-22] MED LIST: ACETAMINOPHEN 325 MG TABLET (FP) ONE; ACETAMINOPHEN 325 MG TABLET (FP) PO ONE; CEPHALEXIN MONOHYDRATE 500 MG CAPSULE (UD) ONE; CEPHALEXIN MONOHYDRATE 500 MG CAPSULE (UD) PO ONE
[2022-06-22 00:52] VITALS: BP 147/93; PULSE 100; RESP 19; TEMP 98.8; BMI 35.1
== END | disposition left against medical advice (07) ==
LOC: JER 00:41
PROC: 2W3FX1Z Immobilization of Left Hand using Splint (ICD-10-PCS; principal; 2022-06-22)
DX: S52.255A Nondisplaced comminuted fracture of shaft of ulna, left arm, initial encounter for closed fracture (principal); W01.0XXA Fall on same level from slipping, tripping and stumbling without subsequent striking against object, initial encounter
CPT/HCPCS: 73030-TC-LT-FY; 73060-TC-LT-FY; 73070-TC-LT-FY; 73090-TC-LT-FY; 73110-TC-LT-FY; 73130-TC-LT-FY; 99285-25

== ENCOUNTER 2022-08-26 21:22 | Inpatient (IN) | payer OTHER ==
[2022-08-26 21:58] VITALS: BMI 35.7
[2022-08-26] MEDS ORDERED: MAG HYDROX/AL HYDROX/SIMETH 30 ML UNIT-DOSE CUP PO PRN (22:35)
[2022-08-26] MEDS ORDERED: MELATONIN 5 MG TABLETS PO PRN (22:35)
[2022-08-26] MEDS ORDERED: LOPERAMIDE HCL 2 MG CAPSULE PO PRN (22:35)
[2022-08-26] MEDS ORDERED: guaiFENesin 200 MG/10 ML 10 ML UNIT-DOSE CUPS PO PRN (22:35)
[2022-08-26] MEDS ORDERED: NICOTINE POLACRILEX 2 MG GUM BC PRN (22:35)
[2022-08-26] MEDS ORDERED: hydrOXYzine PAMOATE 25 MG CAPSULE (FP) PO PRN (22:35)
[2022-08-26] MEDS ORDERED: IBUPROFEN 400 MG TABLET (FP) PO PRN (22:35)
[2022-08-26] MEDS ORDERED: MAGNESIUM HYDROX 2400MG/30ML ORAL SUSPENSION 30 ML CUP PO PRN (22:35)
[2022-08-26] MEDS ORDERED: ACETAMINOPHEN 325 MG TABLET (FP) PO PRN (22:35)
[2022-08-26] MEDS ORDERED: P-EPHED 60MG/TRIPROLIDI 2.5MG TABLET PO PRN (22:35)
[2022-08-26] MEDS ORDERED: NICOTINE 10 MG CARTRIDGE (INHALER) IH PRN (22:35)
[2022-08-26] MEDS ORDERED: MAGNESIUM CITRATE 300 ML BOTTLE PO PRN (22:35)
[2022-08-27 01:00] VITALS: RESP 18
[2022-08-27] MEDS ORDERED: INSULIN (NOVOLOG) ASPART 100 UNITS/ML 10ML VIAL ONE (04:16)
[2022-08-27] MEDS ORDERED: INSULIN SLIDING SCALE (NOVOLOG) 1 VIAL SQ SCH (07:00)
[2022-08-27 07:58] VITALS: BP 132/90; PULSE 77; TEMP 98
[2022-08-27] MEDS ORDERED: PRENATAL VITAMINS W/ FOLIC ACID TABLET (FP) PO SCH (10:00)
[2022-08-27] MEDS ORDERED: TUBERCULIN PPD 5 TU/0.1ML VIAL ID ONE (11:11)
[2022-08-27 11:14] LABS: HEMATOCRIT 41.3 % (35.4-49); HEMOGLOBIN 13.8 GM/dL (11.7-16.9); MCH 29.7 pg (25.7-33.7); MCHC 33.3 g/dl (32.0-35.9); MEAN CELL VOLUME 89.2 fl (80-96); MEAN PLT VOLUME 7.1 fl (7.5-11.1); PLATELET COUNT 160 10^3/uL (134-434); RBC 4.64 M/mm3 (4.00-5.60); RDW 13.3 % (11.9-15.9); WHITE BLOOD COUNT 6.2 K/mm3 (4.0-10.0)
[2022-08-27 11:45] LABS: SYPHILIS W/ RPR CONF NON-REACTIVE (NONREACTIVE)
[2022-08-27] MEDS ORDERED: BUPRENORPHINE/NALOXONE 4 MG/1 MG FILM PACKET SL SCH (11:45)
[2022-08-27 12:41] LABS: BLOOD UREA NITROGEN 18.6 mg/dL (7-18); CALCIUM 8.5 mg/dL (8.5-10.1)
[2022-08-27 12:45] LABS: CREATININE 0.8 mg/dL (0.55-1.3)
[2022-08-27] MEDS ORDERED: ALBUTEROL SO4 HFA INHALER IH PRN (12:45)
[2022-08-27 12:47] LABS: BILIRUBIN,TOTAL 0.4 mg/dL (0.2-1); TOT PROT 5.3 g/dl (6.4-8.2)
[2022-08-27] MEDS ORDERED: sitaGLIPtin PHOSPHATE 50 MG TABLET PO SCH (13:00)
[2022-08-27] MEDS ORDERED: metFORMIN HCL 500 MG TABLET (FP) PO SCH (16:30)
[2022-08-27] MEDS ORDERED: THIAMINE HCL 100 MG TABLET (FP) PO SCH (22:00)
[2022-08-28] MEDS ORDERED: PATIENT'S OWN MEDICATION (NON-FORMULARY) (Cyanocobalamin (Vitamin B-12) [Vitamin B-12] 1,0 PO SCH (10:00)
== END 2022-08-27 13:40 | disposition left against medical advice (07) | DRG 770 ==
LOC: YASAS 21:22 → Y5N 08-27 00:12
PROVIDERS: ADMIT Allergy & Immunology; ATTEND Allergy & Immunology
PROC: HZ42ZZZ Group Counseling for Substance Abuse Treatment, Cognitive-Behavioral (ICD-10-PCS; principal; 2022-08-27)
DX: F11.20 Opioid dependence, uncomplicated (principal); F10.20 Alcohol dependence, uncomplicated; F14.20 Cocaine dependence, uncomplicated; F16.20 Hallucinogen dependence, uncomplicated; F31.9 Bipolar disorder, unspecified; F41.9 Anxiety disorder, unspecified; F19.280 Other psychoactive substance dependence with psychoactive substance-induced anxiety disorder; F19.282 Other psychoactive substance dependence with psychoactive substance-induced sleep disorder; E11.42 Type 2 diabetes mellitus with diabetic polyneuropathy; Z79.84 Long term (current) use of oral hypoglycemic drugs; F43.10 Post-traumatic stress disorder, unspecified; M06.9 Rheumatoid arthritis, unspecified; S52.252D Displaced comminuted fracture of shaft of ulna, left arm, subsequent encounter for closed fracture with routine healing; S51.812D Laceration without foreign body of left forearm, subsequent encounter; X58.XXXD Exposure to other specified factors, subsequent encounter
CPT/HCPCS: 36415; 80053; 82962; 85027; 86780; 86803; C9803-CS; U0003; U0005

== ENCOUNTER 2022-08-30 02:26 | Inpatient (IN) | payer OTHER ==
[2022-08-30 02:47] VITALS: RESP 18
[2022-08-30 02:51] VITALS: BMI 35.9
[2022-08-30] MEDS ORDERED: IBUPROFEN 600 MG TABLET (FP) PO PRN (03:14)
[2022-08-30] MEDS ORDERED: LOPERAMIDE HCL 2 MG CAPSULE PO PRN (03:14)
[2022-08-30] MEDS ORDERED: MAGNESIUM HYDROX 2400MG/30ML ORAL SUSPENSION 30 ML CUP PO PRN (03:14)
[2022-08-30] MEDS ORDERED: NALOXONE HCL (KLOXXADO) 8 MG SPRAY NS PRN (03:14)
[2022-08-30] MEDS ORDERED: ACETAMINOPHEN 325 MG TABLET (FP) PO PRN ×2 (03:14)
[2022-08-30] MEDS ORDERED: DICYCLOMINE HCL 10 MG CAPSULE PO PRN (03:14)
[2022-08-30] MEDS ORDERED: ONDANSETRON *ODT* 4 MG TABLET SL PRN (03:14)
[2022-08-30] MEDS ORDERED: BISMUTH SUBSALICYLATE 524 MG/30 ML PO PRN (03:14)
[2022-08-30] MEDS ORDERED: MAG HYDROX/AL HYDROX/SIMETH 30 ML UNIT-DOSE CUP PO PRN (03:14)
[2022-08-30] MEDS ORDERED: BENZOCAINE/MENTHOL (CHLORASEPTIC ) LOZENGE MM PRN (03:14)
[2022-08-30] MEDS ORDERED: NICOTINE POLACRILEX 2 MG GUM BUC PRN (03:14)
[2022-08-30] MEDS ORDERED: IBUPROFEN 400 MG TABLET (FP) PO PRN (03:14)
[2022-08-30] MEDS ORDERED: ALBUTEROL SO4 HFA INHALER IH PRN (07:39)
[2022-08-30] MEDS: PRENATAL VITAMINS W/ FOLIC ACID TABLET (FP) PO SCH (10:47)
[2022-08-30] MEDS: METHOCARBAMOL 500 MG TABLET PO PRN ×2 (10:47→22:24)
[2022-08-30] MEDS: hydrOXYzine PAMOATE 25 MG CAPSULE (FP) PO PRN ×2 (10:48→22:24)
[2022-08-30] MEDS: NICOTINE 14 MG/24 HOURS TOPICAL PATCH TD SCH (10:48)
[2022-08-30] MEDS: metFORMIN HCL 500 MG TABLET (FP) PO SCH (17:24)
[2022-08-30] MEDS ORDERED: MELATONIN 5 MG TABLETS PO SCH (22:00)
[2022-08-30] MEDS ORDERED: THIAMINE HCL 100 MG TABLET (FP) PO SCH (22:00)
[2022-08-31] MEDS: metFORMIN HCL 500 MG TABLET (FP) PO SCH (06:48)
[2022-08-31] MEDS: NICOTINE 14 MG/24 HOURS TOPICAL PATCH TD SCH (10:32)
[2022-08-31] MEDS: PRENATAL VITAMINS W/ FOLIC ACID TABLET (FP) PO SCH (10:32)
[2022-08-31 13:03] VITALS: BP 124/80; PULSE 68; TEMP 97.5
== END 2022-08-31 14:10 | disposition home or self-care (01) | DRG 774 ==
LOC: YASAS 02:26 → Y6N 02:41 → UNDOADMIN 02:41 → UNDODISIN 08-31 14:10
PROVIDERS: ADMIT Allergy & Immunology; ATTEND Surgery
PROC: HZ2ZZZZ Detoxification Services for Substance Abuse Treatment (ICD-10-PCS; principal; 2022-08-30)
DX: F10.230 Alcohol dependence with withdrawal, uncomplicated (principal); F14.20 Cocaine dependence, uncomplicated; F16.20 Hallucinogen dependence, uncomplicated; F12.20 Cannabis dependence, uncomplicated; F17.210 Nicotine dependence, cigarettes, uncomplicated; F31.9 Bipolar disorder, unspecified; F41.9 Anxiety disorder, unspecified; E11.42 Type 2 diabetes mellitus with diabetic polyneuropathy; Z79.84 Long term (current) use of oral hypoglycemic drugs; J45.909 Unspecified asthma, uncomplicated; M06.9 Rheumatoid arthritis, unspecified
CPT/HCPCS: 82962; C9803-CS; U0003; U0005

== ENCOUNTER 2023-04-20 18:59 | Emergency (ER) | payer OTHER ==
[2023-04-20 19:18] VITALS: BP 141/88; PULSE 98; RESP 18; TEMP 99.4; BMI 34.2
== END 2023-04-20 21:09 | disposition left against medical advice (07) ==
LOC: JERFT 18:59 → JER 18:59 → JERFT 21:09
DX: M79.671 Pain in right foot (principal)
CPT/HCPCS: 99281-25